=== PATIENT | male | born 1950 | race Caucasian/White ===

== ENCOUNTER → 2016-11-09 | Outpatient (CLI) | payer OTHER ==
--- NOTE | 2016-11-09 09:21 | RAD ---
Examination: Ultrasound kidneys History: History of acute renal failure Comparison: None available Findings: The right kidney measures 12.9 x 7.0 x 6.7 cm. The left kidney measures 12.1 x 5.7 x 6.7 cm. The urinary bladder is mildly distended. No evidence of hydronephrosis. Impression: Unremarkable exam
[2016-11-09 09:36] LABS: HEMATOCRIT 39.1 % (39.0-53.0); HEMOGLOBIN 12.6 g/dL (13.0-17.5)
[2016-11-09 09:44] LABS: ALBUMIN 3.5 g/dL (3.4-5.0); CALCIUM 8.9 mg/dL (8.5-10.1); CREATININE 1.6 mg/dL (0.7-1.3); GFR 43.7; PHOSPHORUS 3.7 mg/dL (2.6-4.7); POTASSIUM 5.4 mmol/L (3.5-5.1)
[2016-11-09 09:54] LABS: BACTERIA,URINE 0 /HPF (0-FEW); BILIRUBIN,URINE NEG (NEG); CLARITY,URINE CLEAR; COLOR,URINE COLORLESS; GLUCOSE,URINE NEG (NEG); NITRITE,URINE NEG (NEG); RBC,URINE 0 /HPF (0-2); UROBILINOGEN,URINE 0.2 mg/dL (0.2 mg/dL); WBC,URINE 0 /HPF (0-4)
[2016-11-10 15:08] LABS: MICROALB RD UR <12.0 ug/mL (Not Estab.); PROTEIN RANDOM URINE <4.0 mg/dL (Not Estab.)
[2016-11-10 18:07] LABS: CALCIUM PTH 8.9 mg/dL (8.6-10.2); CREATININE PTH 1.49 mg/dL (0.76-1.27); PTH INTACT 61 pg/mL (15-65)
== END | disposition home or self-care (01) ==
LOC: US 07:56
PROVIDERS: ATTEND Internal Medicine Nephrology
DX: N18.3 Chronic kidney disease, stage 3 (moderate) (principal); N17.9 Acute kidney failure, unspecified; N32.89 Other specified disorders of bladder
CPT/HCPCS: 36415; 76770; 80069; 81001; 82043; 82570; 83735; 83970; 84156; 85014; 85018

== ENCOUNTER 2017-05-27 13:13 | Inpatient (IN) | payer MEDICARE ==
[~2017-05-27] VITALS: Ht 195.6 cm; Wt 151.5 kg
[2017-05-27 13:55] VITALS: BP 113/66
[2017-05-27 16:12] VITALS: BP 102/61
[2017-05-27 16:19] LABS: BILIRUBIN,URINE NEG (NEG); CLARITY,URINE CLEAR; COLOR,URINE YELLOW; GLUCOSE,URINE NEG (NEG)
[2017-05-27 16:20] LABS: BACTERIA,URINE 0 /HPF (0-FEW); NITRITE,URINE NEG (NEG); RBC,URINE 0 /HPF (0-2); UROBILINOGEN,URINE 0.2 mg/dL (0.2 mg/dL); WBC,URINE 0 /HPF (0-4)
[2017-05-27] MEDS ORDERED: GLIM1TAB2 PO (16:28)
[2017-05-27] MEDS ORDERED: WARF5TAB7 PO (16:28)
[2017-05-27] MEDS ORDERED: SIMV40TA3 PO (16:28)
[2017-05-27] MEDS ORDERED: ASPI-630 PO (16:28)
[2017-05-27] MEDS ORDERED: FURO40TA4 PO (16:28)
[2017-05-27] MEDS ORDERED: FENO160T PO (16:28)
[2017-05-27] MEDS ORDERED: MULT1TAB13 PO (16:28)
[2017-05-27] MEDS ORDERED: LISI40TA PO (16:28)
[2017-05-27] MEDS ORDERED: INSU100I27 SQ (16:45)
[2017-05-27] MEDS ORDERED: PROP40TA PO (16:45)
[2017-05-27] MEDS ORDERED: GENTAMYCIN TOP (16:48)
[2017-05-27] MEDS ORDERED: VANCOMYCIN 2 GM in IV NORMAL SALINE 500ML 500 ML IV ONE (18:00)
[2017-05-27 18:06] LABS: BASO # 0.2 x10^3/uL (0.0-0.2); BASO % 1 % (0-3); EOS # 0.2 x10^3/uL (0.0-0.7); EOS % 2 % (0-3); HEMATOCRIT 34.1 % (39.0-53.0); HEMOGLOBIN 11.1 g/dL (13.0-17.5); LYMPH # 0.8 x10^3/uL (1.0-4.8); LYMPH % 7 % (24-48); MEAN CORPUSCULAR HEMOGLOBIN 28 pg (25-35); MEAN CORPUSCULAR HGB CONC 32 g/dL (31-37); MEAN CORPUSCULAR VOLUME 85 fL (79-100); MONO % 8 % (0-9); NEUT # 9.7 x10^3uL (1.8-7.7); NEUT % 82 % (31-73); PLATELET COUNT 374 x10^3/uL (140-400); RED BLOOD COUNT 4.02 x10^6/uL (4.30-5.70); RED CELL DISTRIBUTION WIDTH 16.4 % (11.5-14.5); WHITE BLOOD COUNT 11.9 x10^3/uL (4.0-11.0)
[2017-05-27 18:29] LABS: ALBUMIN 2.9 g/dL (3.4-5.0); ALBUMIN/GLOBULIN RATIO 0.7 (1.0-1.7); CALCIUM 9.1 mg/dL (8.5-10.1); CREATININE 2.2 mg/dL (0.7-1.3); GFR 30.2; TOTAL BILIRUBIN 0.3 mg/dL (0.2-1.0); TOTAL PROTEIN 7.2 g/dL (6.4-8.2)
[2017-05-27 19:11] LABS: SEDIMENTATION RATE 88 (0-15)
[2017-05-27] MEDS ORDERED: DEXTROSE 50% 25 GM / 50ML DISP.SYRIN. IV PRN (19:15)
[2017-05-27 19:38] VITALS: BP 105/68
[2017-05-27] MEDS: SIMVASTATIN 40 MG TABLET. PO SCH (20:27)
[2017-05-27] MEDS: WARFARIN 5 MG TABLET. PO SCH (20:27)
[2017-05-27] MEDS: FENOFIBRATE NANOCRYSTALLIZED 145 MG TABLET PO SCH (20:27)
[2017-05-27] MEDS: IV NORMAL SALINE 1,000ML 1,000 ML IV SCH (20:27)
[2017-05-27] MEDS: PROPRANOLOL 20 MG TABLET. PO SCH ×2 (20:29→20:30)
[2017-05-27] MEDS: INSULIN DETEMIR 300 UNITS/3 ML INSULN.PEN. SQ SCH (21:10)
[2017-05-27] MEDS: VANCOMYCIN PER PHARMACY MC PRN (21:18)
[2017-05-27 23:21] VITALS: BP 115/65
[2017-05-28] MEDS: ACETAMINOPHEN 500 MG TABLET PO PRN (00:52)
[2017-05-28] MEDS: IV NORMAL SALINE 1,000ML 1,000 ML IV SCH ×5 (03:53→23:15)
[2017-05-28 05:52] VITALS: BP 104/67
[2017-05-28 06:05] LABS: CALCIUM 8.8 mg/dL (8.5-10.1); CREATININE 2.4 mg/dL (0.7-1.3); GFR 27.3
[2017-05-28 06:11] LABS: BASO # 0.1 x10^3/uL (0.0-0.2); BASO % 1 % (0-3); EOS # 0.3 x10^3/uL (0.0-0.7); EOS % 3 % (0-3); HEMATOCRIT 32.5 % (39.0-53.0); HEMOGLOBIN 10.5 g/dL (13.0-17.5); LYMPH # 1.6 x10^3/uL (1.0-4.8); LYMPH % 14 % (24-48); MEAN CORPUSCULAR HEMOGLOBIN 27 pg (25-35); MEAN CORPUSCULAR HGB CONC 32 g/dL (31-37); MEAN CORPUSCULAR VOLUME 85 fL (79-100); MONO # 1.1 x10^3/uL (0.0-1.1); MONO % 9 % (0-9); NEUT # 8.5 x10^3uL (1.8-7.7); NEUT % 73 % (31-73); PLATELET COUNT 344 x10^3/uL (140-400); RED BLOOD COUNT 3.81 x10^6/uL (4.30-5.70); RED CELL DISTRIBUTION WIDTH 16.5 % (11.5-14.5); WHITE BLOOD COUNT 11.6 x10^3/uL (4.0-11.0)
[2017-05-28] MEDS: LISINOPRIL 20 MG TABLET PO SCH (08:47)
[2017-05-28] MEDS: ASPIRIN 81 MG TAB.CHEW PO SCH (08:48)
[2017-05-28] MEDS: MULTIVITAMIN with MINERAL TABLET. PO SCH (08:49)
[2017-05-28] MEDS: GLIMEPIRIDE 2 MG TABLET PO SCH (08:49)
[2017-05-28] MEDS: PROPRANOLOL 20 MG TABLET. PO SCH (08:50)
[2017-05-28] MEDS: GENTAMICIN 0.1% TOPICAL OINTMENT 15GM TUBE. TP SCH (08:51)
[2017-05-28] MEDS ORDERED: FUROSEMIDE 40 MG TABLET PO SCH (09:00)
[2017-05-28 11:43] VITALS: BP 96/59
[2017-05-28 15:40] VITALS: BP 118/54
--- NOTE | 2017-05-28 16:14 | PN ---
DATE: SUBJECTIVE: A 67-year-old gentleman being seen at the [facility], he had an infection in his left second toe that the wound care doctor was quite concerned. As a result of this, the patient was admitted to the hospital for further evaluation, IV antibiotic therapy as the entry specialists did not think that the patient could tolerate just oral antibiotics as a way of handling this situation. White count slightly elevated at 12,000; sed rate elevated 88. Potassium initially was 6 and came down to 5. Coags were proper, as he is on chronic warfarin therapy, he is also a diabetic. In any case, the patient is making good progress. He is receiving IV vancomycin and good treatment there. OBJECTIVE: VITAL SIGNS: Blood pressure 105/60, respiratory rate 18, pulse 70, afebrile, did have temperature of 100.9. HEENT: The patient's head was atraumatic, normocephalic. Eyes: PERRLA. LUNGS: Clear. CARDIOVASCULAR: Stable. ABDOMEN: Protuberant. EXTREMITIES: Left foot markedly swollen and tender to that second toe of the left foot. Right toes are also very emaciated as well, but cool, decreased circulation, apparently they have checked these down at [facility] as far as arterial circulation. IMPRESSION: Cellulitis to the left toes, type 2 diabetes, chronic infections of the legs, morbid obesity, CKD III. Continue on IV vancomycin and continue to monitor albumin, which is a moderate to severe protein malnutrition as well as diabetes. THOMAS MALDONADO MD DR: GURU/jordan JOB#: [id number] / [id number]
[2017-05-28] MEDS: WARFARIN 5 MG TABLET. PO SCH (18:35)
[2017-05-28 19:28] VITALS: BP 109/58
[2017-05-28] MEDS: INSULIN DETEMIR 300 UNITS/3 ML INSULN.PEN. SQ SCH (20:30)
[2017-05-28] MEDS: VANCOMYCIN 2 GM in IV NORMAL SALINE 500ML 500 ML IV SCH (20:30)
[2017-05-28] MEDS: FENOFIBRATE NANOCRYSTALLIZED 145 MG TABLET PO SCH (20:30)
[2017-05-28] MEDS: SIMVASTATIN 40 MG TABLET. PO SCH (20:30)
[2017-05-29] MEDS: IV NORMAL SALINE 1,000ML 1,000 ML IV SCH ×5 (02:15→19:28)
[2017-05-29] MEDS: ACETAMINOPHEN 500 MG TABLET PO PRN ×2 (05:14→20:58)
[2017-05-29 05:31] LABS: BASO # 0.1 x10^3/uL (0.0-0.2); BASO % 1 % (0-3); EOS # 0.2 x10^3/uL (0.0-0.7); EOS % 2 % (0-3); HEMATOCRIT 30.5 % (39.0-53.0); HEMOGLOBIN 9.9 g/dL (13.0-17.5); LYMPH # 0.9 x10^3/uL (1.0-4.8); LYMPH % 10 % (24-48); MEAN CORPUSCULAR HEMOGLOBIN 28 pg (25-35); MEAN CORPUSCULAR HGB CONC 32 g/dL (31-37); MEAN CORPUSCULAR VOLUME 86 fL (79-100); MONO # 0.9 x10^3/uL (0.0-1.1); MONO % 10 % (0-9); NEUT # 7.1 x10^3uL (1.8-7.7); NEUT % 77 % (31-73); PLATELET COUNT 284 x10^3/uL (140-400); RED BLOOD COUNT 3.53 x10^6/uL (4.30-5.70); RED CELL DISTRIBUTION WIDTH 16.7 % (11.5-14.5); WHITE BLOOD COUNT 9.2 x10^3/uL (4.0-11.0)
[2017-05-29 05:34] VITALS: BP 122/63
[2017-05-29 05:46] LABS: ALBUMIN 2.3 g/dL (3.4-5.0); ALBUMIN/GLOBULIN RATIO 0.5 (1.0-1.7); CALCIUM 8.2 mg/dL (8.5-10.1); GFR 33.7; POTASSIUM 5.7 mmol/L (3.5-5.1); TOTAL BILIRUBIN 0.3 mg/dL (0.2-1.0); TOTAL PROTEIN 6.8 g/dL (6.4-8.2)
[2017-05-29] MEDS: GENTAMICIN 0.1% TOPICAL OINTMENT 15GM TUBE. TP SCH (09:00)
[2017-05-29] MEDS: ASPIRIN 81 MG TAB.CHEW PO SCH (09:09)
[2017-05-29] MEDS: MULTIVITAMIN with MINERAL TABLET. PO SCH (09:09)
[2017-05-29] MEDS: LISINOPRIL 20 MG TABLET PO SCH (09:09)
[2017-05-29] MEDS: GLIMEPIRIDE 2 MG TABLET PO SCH (09:10)
[2017-05-29] MEDS: PROPRANOLOL 20 MG TABLET. PO SCH ×2 (09:10→20:17)
[2017-05-29 10:53] VITALS: BP 105/68
[2017-05-29] MEDS: WARFARIN 5 MG TABLET. PO SCH (11:21)
[2017-05-29 14:42] VITALS: BP 109/66
--- NOTE | 2017-05-29 14:47 | RAD ---
CHEST PA LATERAL Clinical Indication: Patient with PICC line placement yesterday, left arm pain today. Comparison: None. Technique: Frontal and lateral views of the chest are obtained. Findings: Right upper extremity PICC line present with distal tip overlying the expected region of the superior cavoatrial junction. No focal consolidation, pleural effusion or pneumothorax is seen. Prominent interstitial markings are seen bilaterally. Mild biapical scarring is present. Mild cardiomegaly is present. Visualized osseous structures and surrounding soft tissues demonstrate no acute finding. IMPRESSION: 1. Right upper extremity PICC line distal tip overlies expected superior cavoatrial junction. 2. Prominent interstitial markings may represent fibrosis or mild interstitial edema. Mild cardiomegaly.
--- NOTE | 2017-05-29 16:43 | RAD ---
FOOT LEFT 2V Clinical Indication: infection Comparison: None. Technique: Frontal, oblique and lateral views of the left foot are obtained. Findings: There is wrap material overlying the foot which limits detailed visualization of the underlying osseous structures. There is evidence of erosion of the proximal, mid and distal phalanges of the fourth digit. Remaining osseous structures of the foot appear grossly intact. There is some increased density within the soft tissues in the region of the fourth digit, may represent focal swelling or laceration. No significant subcutaneous emphysema is seen. Hyperdensities are seen within soft tissue swelling along the dorsum of the foot at the level of the phalanges, of unknown etiology, considerations would include foreign bodies or overlying external artifact. IMPRESSION: Osseous erosion involving the phalanges of the fourth digit, may be secondary to osteomyelitis. Soft tissue swelling and increased density present about the foot, detailed above.
--- NOTE | 2017-05-29 18:45 | PN ---
DATE: 05/28/2017 SUBJECTIVE: A 67-year-old gentleman with cellulitis to his left foot. The patient receiving IV vancomycin, doing a little bit better. Wound seems to be healing up fairly good, had a PICC line, but has pain in his right arm, did spike temperature of 101.1 early this morning . PHYSICAL EXAMINATION: VITAL SIGNS: Pulse 80, respiratory rate 18. NEUROLOGIC: The patient is alert and oriented x 3. Speech fluent. Cranial nerves appropriate. Cranial nerves 2-12 grossly intact. EXTREMITIES: The patient's left foot still bandaged healing well. Continuing on vancomycin. LABORATORY DATA: His potassium for whatever reason, has gone up to 5.7. We will decrease his lisinopril, continue to monitor him on that. IMPRESSION: 1. Cellulitis to the left foot. 2. Type 2 diabetes. 3. Morbid obesity. PLAN: We will go ahead and get an x-ray of the left foot, also of the chest to make sure the PICC line is in place. THOMAS MALDONADO MD DR: GURU/jordan JOB#: [id number] / [id number]
[2017-05-29 19:16] VITALS: BP 126/63
[2017-05-29] MEDS: VANCOMYCIN 2 GM in IV NORMAL SALINE 500ML 500 ML IV SCH (20:16)
[2017-05-29] MEDS: SIMVASTATIN 40 MG TABLET. PO SCH (20:17)
[2017-05-29] MEDS: FENOFIBRATE NANOCRYSTALLIZED 145 MG TABLET PO SCH (20:17)
[2017-05-29] MEDS: INSULIN DETEMIR 300 UNITS/3 ML INSULN.PEN. SQ SCH (20:52)
[2017-05-29 20:58] LABS: VANC TR 13.1 mcg/mL (10.0-20.0)
[2017-05-29] MEDS: VANCOMYCIN PER PHARMACY MC PRN (21:19)
[2017-05-29 23:04] VITALS: BP 126/63
[2017-05-30] MEDS: IV NORMAL SALINE 1,000ML 1,000 ML IV SCH (02:54)
[2017-05-30 05:41] LABS: BASO # 0.1 x10^3/uL (0.0-0.2); BASO % 1 % (0-3); EOS # 0.3 x10^3/uL (0.0-0.7); EOS % 3 % (0-3); HEMATOCRIT 31.8 % (39.0-53.0); HEMOGLOBIN 10.1 g/dL (13.0-17.5); LYMPH # 1.1 x10^3/uL (1.0-4.8); LYMPH % 13 % (24-48); MEAN CORPUSCULAR HEMOGLOBIN 28 pg (25-35); MEAN CORPUSCULAR HGB CONC 32 g/dL (31-37); MEAN CORPUSCULAR VOLUME 87 fL (79-100); MONO % 12 % (0-9); NEUT # 5.8 x10^3uL (1.8-7.7); NEUT % 71 % (31-73); PLATELET COUNT 332 x10^3/uL (140-400); RED BLOOD COUNT 3.64 x10^6/uL (4.30-5.70); RED CELL DISTRIBUTION WIDTH 16.8 % (11.5-14.5); WHITE BLOOD COUNT 8.2 x10^3/uL (4.0-11.0)
[2017-05-30 05:57] VITALS: BP 133/83
[2017-05-30 06:03] LABS: CALCIUM 8.5 mg/dL (8.5-10.1); CREATININE 1.6 mg/dL (0.7-1.3); GFR 43.6; POTASSIUM 5.7 mmol/L (3.5-5.1)
[2017-05-30] MEDS: MULTIVITAMIN with MINERAL TABLET. PO SCH (08:49)
[2017-05-30] MEDS: ASPIRIN 81 MG TAB.CHEW PO SCH (08:49)
[2017-05-30] MEDS: PROPRANOLOL 20 MG TABLET. PO SCH (08:49)
[2017-05-30] MEDS: GLIMEPIRIDE 2 MG TABLET PO SCH (08:50)
[2017-05-30] MEDS ORDERED: LISINOPRIL 20 MG TABLET PO SCH (09:00)
[2017-05-30] MEDS ORDERED: FUROSEMIDE 40 MG/4 ML VIAL IVP SCH (09:40)
[2017-05-30 10:53] VITALS: BP 134/85
== END 2017-05-30 13:05 | disposition short-term general hospital (02) | DRG 871 ==
LOC: 1 SOUTH 13:30
PROVIDERS: ADMIT Family Medicine; ATTEND Family Medicine
PROC: 02HV33Z Insertion of Infusion Device into Superior Vena Cava, Percutaneous Approach (ICD-10-PCS; principal; 2017-05-28)
PROC: B548ZZA Ultrasonography of Superior Vena Cava, Guidance (ICD-10-PCS; 2017-05-28)
DX: A41.9 Sepsis, unspecified organism (principal); E43 Unspecified severe protein-calorie malnutrition; E11.22 Type 2 diabetes mellitus with diabetic chronic kidney disease; N18.3 Chronic kidney disease, stage 3 (moderate); L03.116 Cellulitis of left lower limb; E66.01 Morbid (severe) obesity due to excess calories; Z68.39 Body mass index [BMI] 39.0-39.9, adult; Z79.01 Long term (current) use of anticoagulants
CPT/HCPCS: 36415; 36569; 71020; 73620; 80048; 80053; 80202; 81001; 82947; 83605; 85025; 85610; 85651; 87040; 87070; J1815; J1940; J3370; J7040; J7030

== ENCOUNTER 2018-04-06 08:04 | Inpatient (IN) | payer MEDICARE ==
[2018-04-06] VITALS (7 sets, daily range): BP systolic 105–116; BP diastolic 53–76
[~2018-04-06] VITALS: Ht 195.6 cm; Wt 144.3 kg
[~2018-04-06 08:04] MED LIST: ASPI-630 PO; FENO160T PO; FURO40TA4 PO; GENTAMYCIN TOP; GLIM1TAB2 PO; INSU100I27 SQ; LISI40TA PO; MULT1TAB13 PO; PROP40TA PO; SIMV40TA3 PO; WARF-31 PO
[2018-04-06] MEDS ORDERED: IV NORMAL SALINE 1,000ML 1,000 ML IV SCH (10:30)
[2018-04-06] MEDS ORDERED: WARF3TAB50 PO (12:19)
[2018-04-06] MEDS ORDERED: ERGO500027 PO (12:22)
[2018-04-06 13:10] LABS: ALBUMIN 3.3 g/dL (3.4-5.0); ALBUMIN/GLOBULIN RATIO 0.9 (1.0-1.7); CALCIUM 8.2 mg/dL (8.5-10.1); CREATININE 6.7 mg/dL (0.7-1.3); GFR 8.3; TOTAL BILIRUBIN 0.3 mg/dL (0.2-1.0); TOTAL PROTEIN 6.9 g/dL (6.4-8.2)
[2018-04-06 13:21] LABS: POTASSIUM 7.7 mmol/L (3.5-5.1)
[2018-04-06] MEDS: GENTAMICIN 0.1% TOPICAL OINTMENT 15GM TUBE. TP SCH (13:27)
[2018-04-06 13:30] LABS: BASO # 0.1 x10^3/uL (0.0-0.2); BASO % 1 % (0-3); EOS # 0.3 x10^3/uL (0.0-0.7); EOS % 4 % (0-3); HEMATOCRIT 34.9 % (39.0-53.0); HEMOGLOBIN 11.1 g/dL (13.0-17.5); LYMPH # 0.9 x10^3/uL (1.0-4.8); LYMPH % 10 % (24-48); MEAN CORPUSCULAR HEMOGLOBIN 29 pg (25-35); MEAN CORPUSCULAR HGB CONC 32 g/dL (31-37); MEAN CORPUSCULAR VOLUME 90 fL (79-100); MONO # 0.6 x10^3/uL (0.0-1.1); MONO % 7 % (0-9); NEUT # 6.5 x10^3uL (1.8-7.7); NEUT % 78 % (31-73); PLATELET COUNT 293 x10^3/uL (140-400); RED BLOOD COUNT 3.88 x10^6/uL (4.30-5.70); RED CELL DISTRIBUTION WIDTH 16.6 % (11.5-14.5); WHITE BLOOD COUNT 8.4 x10^3/uL (4.0-11.0)
[2018-04-06] MEDS ORDERED: SODIUM POLYSTYRENE SULFONATE 15 GM/60 ML ORAL.SUSP. PO ONE (15:00)
[2018-04-06] MEDS ORDERED: DEXTROSE 50% 25 GM / 50ML DISP.SYRIN. IV ONE (15:00)
[2018-04-06] MEDS ORDERED: INSULIN REGULAR 100 UNIT/ML 3ML VIAL. IV ONE (15:00)
[2018-04-06] MEDS ORDERED: SODIUM BICARB ADULT 8.4% 50 MEQ/50 ML DISP.SYRIN. IV ONE (15:00)
[2018-04-06] MEDS ORDERED: CALCIUM GLUCONATE 1,000 MG/10 ML VIAL IV ONE (15:00)
[2018-04-06] MEDS ORDERED: WARFARIN 3 MG TABLET. PO SCH (16:00)
[2018-04-06] MEDS ORDERED: CALCIUM GLUCONATE 1,000 MG in IV NORMAL SALINE 100ML 100 ML IV ONE (16:00)
[2018-04-06] MEDS: ALBUTEROL SULFATE 2.5 MG/3 ML NEBU. NEB SCH ×2 (16:00→20:00)
[2018-04-06] MEDS ORDERED: WARFARIN 5 MG TABLET. PO SCH (16:00)
--- NOTE | 2018-04-06 16:45 | RAD ---
Chest, 2 views, 04/06/2018: HISTORY: Shortness of breath Comparison is made to a study from 05/29/2017. A right PICC is unchanged extending into the superior aspect of the right atrium. The heart size is normal. There are scattered parenchymal scars. No pulmonary consolidation is seen. There is no evidence of pleural fluid. Moderate spurring is present in the spine. IMPRESSION: No acute cardiopulmonary abnormality is detected. Electronically signed by: Robert Trinidad MD (04/06/2018 4:42 PM) [facility]
[2018-04-06] MEDS: IV DEXTROSE 5 %-0.45 % NACL 1,000 ML IV SCH (17:07)
--- NOTE | 2018-04-06 17:17 | EKG ---
[address] [address] Test Date: 2018-04-06 Test Time: 17:10:50 Pat Name: CALOS METZ Department: Room: 103 A Gender: M Produce Wrapper: : 1950 Requested By: THOMAS MALDONADO Order Number: [id number] Reading MD: Apolinar Sky MD Measurements Intervals [place] Rate: 89 P: 90 GA: 228 QRS: 31 QRSD: 88 T: 38 QT: 318 QTc: 393 Interpretive Statements SINUS RHYTHM PROLONGED GA INTERVAL Electronically Signed On 04-10-2018 8:45:44 CDT by Apolinar Sky MD
[2018-04-06 18:56] LABS: BILIRUBIN,URINE NEG (NEG); CLARITY,URINE HAZY; COLOR,URINE YELLOW; GLUCOSE,URINE NEG (NEG)
[2018-04-06 18:57] LABS: BACTERIA,URINE 0 /HPF (0-FEW); NITRITE,URINE NEG (NEG); RBC,URINE 20-40 /HPF (0-2); SQUAMOUS EPITHELIAL CELL,UR OCC /LPF; UROBILINOGEN,URINE 0.2 mg/dL (0.2 mg/dL); WBC,URINE 0 /HPF (0-4)
[2018-04-06 18:59] LABS: CALCIUM 8.2 mg/dL (8.5-10.1); CREATININE 6.3 mg/dL (0.7-1.3); GFR 8.9
[2018-04-06 19:02] LABS: POTASSIUM 6.2 mmol/L (3.5-5.1)
[2018-04-06] MEDS ORDERED: PROPRANOLOL 20 MG TABLET. PO SCH (21:00)
[2018-04-06] MEDS ORDERED: INSULIN DETEMIR 55 UNIT SQ SCH (21:00)
[2018-04-06] MEDS ORDERED: VANCOMYCIN PER PHARMACY MC PRN ×2 (22:00→22:15)
[2018-04-06] MEDS ORDERED: VANCOMYCIN 2 GM in IV NORMAL SALINE 500ML 500 ML IV SCH (23:00)
[2018-04-07] VITALS (9 sets, daily range): BP systolic 83–113; BP diastolic 46–55
[2018-04-07] MEDS: IV DEXTROSE 5 %-0.45 % NACL 1,000 ML IV SCH ×3 (00:33→07:29)
[2018-04-07 02:08] LABS: HEMOGLOBIN A1C 7.2 % (4.8-5.6)
[2018-04-07 04:59] LABS: BASO % 1 % (0-3); EOS # 0.2 x10^3/uL (0.0-0.7); EOS % 4 % (0-3); HEMATOCRIT 27.2 % (39.0-53.0); HEMOGLOBIN 8.6 g/dL (13.0-17.5); LYMPH # 0.7 x10^3/uL (1.0-4.8); LYMPH % 12 % (24-48); MEAN CORPUSCULAR HEMOGLOBIN 29 pg (25-35); MEAN CORPUSCULAR HGB CONC 32 g/dL (31-37); MEAN CORPUSCULAR VOLUME 90 fL (79-100); MONO # 0.5 x10^3/uL (0.0-1.1); MONO % 8 % (0-9); NEUT # 4.4 x10^3uL (1.8-7.7); NEUT % 75 % (31-73); PLATELET COUNT 216 x10^3/uL (140-400); RED BLOOD COUNT 3.01 x10^6/uL (4.30-5.70); RED CELL DISTRIBUTION WIDTH 15.8 % (11.5-14.5); WHITE BLOOD COUNT 5.8 x10^3/uL (4.0-11.0)
[2018-04-07 05:03] LABS: CALCIUM 7.6 mg/dL (8.5-10.1); CREATININE 5.8 mg/dL (0.7-1.3); GFR 9.8
[2018-04-07] MEDS: ALBUTEROL SULFATE 2.5 MG/3 ML NEBU. NEB SCH (05:18)
[2018-04-07] MEDS ORDERED: CALCIUM GLUCONATE 1,000 MG in IV NORMAL SALINE 100ML 100 ML IV ONE (06:00)
[2018-04-07] MEDS ORDERED: DEXTROSE 50% 25 GM / 50ML DISP.SYRIN. IV ONE (06:30)
[2018-04-07] MEDS ORDERED: CALCIUM GLUCONATE 1,000 MG/10 ML VIAL IV ONE ×2 (06:30→08:00)
[2018-04-07] MEDS ORDERED: INSULIN REGULAR 100 UNIT/ML 3ML VIAL. IV ONE (07:00)
[2018-04-07] MEDS ORDERED: LACTULOSE 20 GM/30 ML SOLUTION. PO ONE (08:00)
[2018-04-07] MEDS ORDERED: SODIUM BICARB ADULT 8.4% 50 MEQ/50 ML DISP.SYRIN. IV ONE (08:00)
[2018-04-07] MEDS ORDERED: ASPIRIN 81 MG TAB.CHEW PO SCH (08:00)
[2018-04-07] MEDS ORDERED: SODIUM POLYSTYRENE SULFONATE 15 GM/60 ML ORAL.SUSP. PO ONE (08:00)
[2018-04-07] MEDS: GENTAMICIN 0.1% TOPICAL OINTMENT 15GM TUBE. TP SCH (09:00)
[2018-04-07] MEDS ORDERED: NON FORMULARY ITEM (Glimepiride 1 TAB) PO SCH (09:00)
[2018-04-07] MEDS ORDERED: MULTIVITAMIN with MINERAL TABLET. PO SCH (09:00)
[2018-04-07] MEDS ORDERED: FUROSEMIDE 40 MG TABLET PO SCH (09:00)
--- NOTE | 2018-04-07 12:22 | DS ---
DATE OF DISCHARGE: 04/07/2018 HOSPITAL COURSE: The patient is a 68-year-old male who came in with hyperkalemia, potassium greater than 7. The patient also had acute on top of chronic renal failure. The patient actually was doing quite well. Mentally, he was alert and oriented and not having any major problems. The blood pressure went down to 89/52, respiratory rate 18, pulse 6. The patient also had infection in his legs. He has been followed by wound clinic down at [facility]. His white count remained stable at around 8. His hemoglobin went down to 8.6 and so forth. His potassium did go down as low as 6.2, however, came right back up to 7 with a BUN and creatinine of 54 and 5.8 despite fluids and calcium gluconate, bicarbonate, Kayexalate, insulin, and D50. He probably needs dialysis and therefore he was transferred down to [facility] where they have all those specialists. IMPRESSION: Hyperkalemia, acute on top of chronic renal failure, severe, possible sepsis, cellulitis of the legs, hypotension, type 2 diabetes, moderate hypoalbuminemia, elevated ammonia levels. He is on chronic warfarin. The patient will be transferred down to [place] as noted. Dr. Alegria will be accepting the patient in transfer. THOMAS MALDONADO MD DR: GURU/jordan JOB#: [id number] / [id number]
--- NOTE | 2018-04-07 12:38 | PN ---
DATE: 04/07/2018 SUBJECTIVE: A 68-year-old male came in yesterday with hyperkalemia and acute on top of chronic renal failure. The patient was given IV calcium gluconate as well as D50 and insulin due to some recent studies. Kayexalate was aggressively used which can cause abnormalities. In any case, his main problem seems not related to be with the potassium but also his renal function is markedly diminished, initially BUN of 93, creatinine of 6.3 that is somewhat improved to 84 and 5.8. He has been seen by Nephrology in the past. PICC line is placed. The patient is basically stable, although blood pressures have been dropping somewhat approximately 90/50, respiratory rate 20, pulse 70. The patient is alert and oriented. He says he has no significant pain. He does have bilateral cellulitis and problems with his legs for which he has been seen down at [facility]. In any case, he is receiving IV vancomycin and Levaquin for that adjusted by pharmacy and the like. PHYSICAL EXAMINATION: GENERAL: Otherwise, the patient is alert and oriented. LUNGS: Diminished, but clear. CARDIOVASCULAR: Regular sinus rhythm. ABDOMEN: Soft, nontender. EXTREMITIES: The patient's legs are quite swollen, weepy, being wrapped with Unna boots there. LABORATORY DATA: Most recent labs show sodium 134, potassium 7, BUN and creatinine of 84 and 5.8. The patient's A1c 7.2. Albumin low at 3.3. Hemoglobin and hematocrit 8.6 and 27 with white count of 5.8. His INR is good at 2.6. He is on chronic warfarin. D-dimer of course was unremarkable. Due to the complicated nature and probable need of dialysis and alike patient will be transferred down to [place]. He is agreeable with that. Discussed with him, Dr. Alegria be accepting physician. IMPRESSION: Hyperkalemia, acute on top of chronic renal failure, anemia, cellulitis to the legs, hematuria. The patient will be transferred via EMS to that facility. THOMAS MALDONADO MD DR: GURU/jordan JOB#: [id number] / [id number]
[2018-04-07] MEDS ORDERED: LACTOBACILLUS RHAMNOSUS GG 1 CAPSULE. PO SCH (21:00)
[2018-04-09] MEDS ORDERED: VANCOMYCIN 2 GM in IV NORMAL SALINE 500ML 500 ML IV SCH (21:00)
--- NOTE | 2018-04-14 10:00 | HP ---
ADMIT DATE: 04/06/2018 HISTORY OF PRESENT ILLNESS: The patient is a 68-year-old male who has apparently been seen as an outpatient, had labs drawn and had a potassium of greater than 7. As a result of this, he was directly admitted to the hospital, given large doses of D50 and insulin as well as fluids and calcium gluconate protocol. The patient's blood pressure was also down to 89/52. The patient's potassium did come down at first and then rebounded back into the 7 range. He also had marked deterioration of renal function with a BUN and creatinine of 54 and 5.8. As a result of this, the patient because of his extraordinary circumstances, was transferred down to [place], under care of Dr. Alegria for evaluation for this. PAST MEDICAL HISTORY: Including peripheral neuropathy, chronic anticoagulation on warfarin, chronic renal insufficiency and failure, left foot fourth digit removal, cellulitis, stasis ulcers. FAMILY HISTORY: Positive for diabetes, depression, congestive heart failure and COPD in the mother and a daughter with depression. Father with aneurysm and colon cancer. ALLERGIES: THE PATIENT HAS ALLERGIES TO MILK-CONTAINING PRODUCTS AND LIBRIUM. MEDICATIONS: Include warfarin 3 mg, fenofibrate 160, Zoloft 40, propranolol 40, lisinopril 40, aspirin 81, furosemide, glyburide. FAMILY HISTORY: Noncontributory. SOCIAL HISTORY: The patient used to have a history of smoking; however, he has quit for several years now. Denies alcohol or drug use. REVIEW OF SYSTEMS: The patient says he feels fairly weak, but other than that, he is feeling fairly good. Denies chest pain, shortness of breath. Denies abdominal pain. PHYSICAL EXAMINATION: GENERAL: Pleasant white male. VITAL SIGNS: Blood pressure 88/50, respiratory rate 20, pulse 70, afebrile. HEENT: The patient's head was atraumatic, normocephalic. Eyes: PERRLA without jaundice. Mouth and throat were normal. NECK: Supple, without JVD, carotid bruits or thyromegaly. LUNGS: Diminished throughout, poor movement of air. CARDIOVASCULAR: Regular sinus rhythm, S1, S2, without murmur, rub, thrill, or extra heart sound. ABDOMEN: Soft, nontender, no rebound or guarding, positive bowel sounds, no hepatosplenomegaly was noted. EXTREMITIES: No clubbing, cyanosis, +3 to 4 pitting edema with multiple ulcerations and old ulcers on his legs. Otherwise, pulses noted distally diminished. LABORATORY DATA: Demonstrated a hemoglobin and hematocrit of 8.6 and 27. Potassium of 7, BUN and creatinine 84 and 5.8, blood sugar 184. Urine showed 20-40 red blood cells. IMPRESSION: Therefore, hyperkalemia, acute on top of chronic renal failure, venous stasis ulcers, anemia, probably secondary to renal dysfunction, chronic warfarin therapy. We will make further evaluation on him as indicated: As noted, will be transferred out to [place] with Dr. Alegria as an accepting attending. THOMAS MALDONADO MD DR: GURU/jordan JOB#: [id number] / [id number]
== END 2018-04-07 09:45 | disposition short-term general hospital (02) | DRG 872 ==
LOC: 1 SOUTH 09:41
PROVIDERS: ADMIT Family Medicine; ATTEND Family Medicine
DX: A41.9 Sepsis, unspecified organism (principal); L03.115 Cellulitis of right lower limb; L03.116 Cellulitis of left lower limb; N17.9 Acute kidney failure, unspecified; L97.909 Non-pressure chronic ulcer of unspecified part of unspecified lower leg with unspecified severity; E87.5 Hyperkalemia; E11.22 Type 2 diabetes mellitus with diabetic chronic kidney disease; D64.9 Anemia, unspecified; E88.09 Other disorders of plasma-protein metabolism, not elsewhere classified; N18.9 Chronic kidney disease, unspecified; Z79.01 Long term (current) use of anticoagulants; E11.622 Type 2 diabetes mellitus with other skin ulcer; Z83.3 Family history of diabetes mellitus; Z87.891 Personal history of nicotine dependence; Z82.5 Family history of asthma and other chronic lower respiratory diseases; Z82.49 Family history of ischemic heart disease and other diseases of the circulatory system; Z80.0 Family history of malignant neoplasm of digestive organs
CPT/HCPCS: 36415; 36569; 71046; 80048; 80053; 81001; 82140; 82947; 83036; 83540; 83550; 83605; 85025; 85379; 85610; 87040; 87086; 93005; J0610; J1815; J1956; J3370; J7040; J7030

== ENCOUNTER → 2018-06-16 | Outpatient (CLI) | payer MEDICARE ==
[2018-04-07 08:03] VITALS: BP 89/52
[~2018-06-16] MED LIST changes: +ERGO500027 PO; +WARF3TAB50 PO
[2018-06-16 10:15] LABS: ALBUMIN 3.5 g/dL (3.4-5.0); ALBUMIN/GLOBULIN RATIO 0.7 (1.0-1.7); CALCIUM 9.1 mg/dL (8.5-10.1); CREATININE 3.6 mg/dL (0.7-1.3); POTASSIUM 5.7 mmol/L (3.5-5.1); TOTAL BILIRUBIN 0.4 mg/dL (0.2-1.0); TOTAL PROTEIN 8.2 g/dL (6.4-8.2)
== END | disposition home or self-care (01) ==
LOC: LAB 09:37
PROVIDERS: ATTEND Nurse Practitioner Family
DX: E87.5 Hyperkalemia (principal)
CPT/HCPCS: 36415; 80053

== ENCOUNTER 2018-06-27 12:22 | Inpatient (IN) | payer MEDICARE ==
[~2018-06-27] VITALS: Ht 195.6 cm; Wt 137.6 kg
[2018-06-27] VITALS (27 sets, daily range): BP systolic 78–154; BP diastolic 39–73
[2018-06-27] MEDS ORDERED: IV NORMAL SALINE 1,000ML 1,000 ML IV SCH (12:33)
[2018-06-27 13:04] LABS: BASO # 0.1 x10^3/uL (0.0-0.2); BASO % 1 % (0-3); EOS # 0.1 x10^3/uL (0.0-0.7); EOS % 1 % (0-3); HEMATOCRIT 30.3 % (39.0-53.0); HEMOGLOBIN 9.5 g/dL (13.0-17.5); LYMPH # 0.3 x10^3/uL (1.0-4.8); LYMPH % 2 % (24-48); MEAN CORPUSCULAR HEMOGLOBIN 28 pg (25-35); MEAN CORPUSCULAR HGB CONC 31 g/dL (31-37); MEAN CORPUSCULAR VOLUME 88 fL (79-100); MONO # 0.8 x10^3/uL (0.0-1.1); MONO % 5 % (0-9); NEUT # 14.6 x10^3uL (1.8-7.7); NEUT % 92 % (31-73); PLATELET COUNT 258 x10^3/uL (140-400); RED BLOOD COUNT 3.44 x10^6/uL (4.30-5.70); RED CELL DISTRIBUTION WIDTH 15.9 % (11.5-14.5); WHITE BLOOD COUNT 15.9 x10^3/uL (4.0-11.0)
--- NOTE | 2018-06-27 13:06 | RAD ---
PORTABLE CHEST 1V Clinical History: fever x 2 days Technique: AP view of the chest was obtained at 06/27/2018 11:58 AM. Comparison: April 06, 2018. Findings: The heart is mildly enlarged. The pulmonary vasculature is normal. The lungs and pleural margins are clear. Impression: Mild cardiomegaly. Stable appearance of the chest. Electronically signed by: Gregorio Martin III, MD (06/27/2018 1:02 PM) [facility]
[2018-06-27 13:11] LABS: AMORPHOUS SEDIMENT,UR PRESENT /HPF; BACTERIA,URINE 0 /HPF (0-FEW); BILIRUBIN,URINE NEG (NEG); CLARITY,URINE CLEAR; COLOR,URINE YELLOW; GLUCOSE,URINE 100 mg/dL (NEG); HYALINE CASTS, URINE FEW /HPF; NITRITE,URINE NEG (NEG); SQUAMOUS EPITHELIAL CELL,UR FEW /LPF; UROBILINOGEN,URINE 0.2 mg/dL (0.2 mg/dL); WBC,URINE RARE /HPF (0-4)
[2018-06-27] MEDS ORDERED: VANCOMYCIN 1 GM in IV NORMAL SALINE 250ML 250 ML IV ONE ×2 (13:15→16:30)
[2018-06-27 13:19] LABS: ALBUMIN/GLOBULIN RATIO 0.8 (1.0-1.7); CALCIUM 8.4 mg/dL (8.5-10.1); CREATININE 2.9 mg/dL (0.7-1.3); GFR 21.9; POTASSIUM 4.9 mmol/L (3.5-5.1); TOTAL BILIRUBIN 0.4 mg/dL (0.2-1.0); TOTAL PROTEIN 6.9 g/dL (6.4-8.2)
[2018-06-27 13:26] LABS: INFLUENZA A PATIENT NEGATIVE (NEGATIVE); INFLUENZA B PATIENT NEGATIVE (NEGATIVE)
[2018-06-27] MEDS ORDERED: IV NORMAL SALINE 50ML 50 ML ONE (13:30)
[2018-06-27] MEDS ORDERED: cefTRIAXone SODIUM 1 GM VIAL IV ONE (13:30)
[2018-06-27] MEDS ORDERED: VANCOMYCIN 1 GM VIAL. ONE (13:30)
[2018-06-27] MEDS ORDERED: VANCOMYCIN 2 GM in IV NORMAL SALINE 500ML 500 ML IV ONE (13:30)
[2018-06-27] MEDS ORDERED: IV NORMAL SALINE 500ML 500 ML ONE (13:30)
[2018-06-27] MEDS ORDERED: IV NORMAL SALINE 1,000ML 1,000 ML IV ONE ×3 (13:30→14:45)
[2018-06-27] MEDS: IV NORMAL SALINE 1,000ML 1,000 ML IV SCH ×7 (13:36→17:15)
--- NOTE | 2018-06-27 13:36 | PHYS DOC ---
Past History Past Medical History: A-Fib, Diabetes, High Cholesterol, Hypertension Adult General Chief Complaint Chief Complaint: FEVER HPI HPI Patient is a 68 year old male with history of diabetes mellitus, hypertension, dyslipidemia and lower extremity chronic cellulitis who brought in by EMS because of fever. Patient states he didn't feel good today and was shaking and checked his temperature was 104 and took Tylenol and ibuprofen around 10 AM. Patient complaining of chronic lower extremity edema and erythema and increasing pain in left side since this morning. Patient has chronic cough without new change and denies nasal congestion, headache, nausea and vomiting, shortness of breath, urinary symptom. Review of Systems Review of Systems Constitutional: Reports fever and chills Eyes: Denies change in visual acuity, redness, or eye pain [] HENT: Denies nasal congestion or sore throat [] Respiratory: Denies cough or shortness of breath [] Cardiovascular: No additional information not addressed in HPI [] GI: Denies abdominal pain, nausea, vomiting, bloody stools or diarrhea [] : Denies dysuria or hematuria [] Musculoskeletal: Reports chronic back pain, reports extremity pain Integument: Reports erythema Neurologic: Denies headache, focal weakness or sensory changes [] Endocrine: Denies polyuria or polydipsia [] All other systems were reviewed and found to be within normal limits, except as documented in this note. Current Medications Current Medications Current Medications Medications (Trade) Dose Ordered Sig/Karine Start Time Stop Time Status Last Admin Dose Admin Ceftriaxone Sodium 1 gm/ Sodium Chloride 50 ml @ 100 mls/hr 1X ONCE 06/27/18 13:30 06/27/18 13:59 Sodium Chloride 500 ml @ As Directed STK-MED ONCE 06/27/18 13:30 06/27/18 13:31 DC Vancomycin HCl (Vancomycin) 1 gm STK-MED ONCE 06/27/18 13:30 06/27/18 13:31 DC Vancomycin HCl 1 gm/Sodium Chloride 250 ml @ 250 mls/hr 1X ONCE 06/27/18 13:15 06/27/18 13:28 DC Vancomycin HCl 2 gm/Sodium Chloride 500 ml @ 250 mls/hr 1X ONCE 06/27/18 13:30 06/27/18 15:29 Allergies Allergies Allergies Coded Allergies Type Severity Reaction Last Updated Verified Milk Containing Products Allergy Intermediate 05/30/17 Yes chlordiazepoxide Allergy Intermediate 05/30/17 Yes Insulins Allergy Unknown 06/27/18 Yes propoxyphene Allergy Unknown 06/27/18 Yes Physical Exam Physical Exam Constitutional: Well developed, well nourished, mild distress, non-toxic appearance. [] HENT: Normocephalic, atraumatic, bilateral external ears normal, oropharynx dry , no oral exudates, nose normal. [] Eyes: PERRLA, EOMI, conjunctiva normal, no discharge. [] Neck: Normal range of motion, no tenderness, supple, no stridor. [] Cardiovascular: Tachycardia, no murmur [] Lungs & Thorax: Bilateral breath sounds clear to auscultation [] Abdomen: Bowel sounds normal, soft, no tenderness, no masses, no pulsatile masses. [] Skin: Warm, dry, no erythema, no rash. [] Back: No tenderness, no CVA tenderness. [] Extremities: Bilateral lower extremity 2+ edema and erythema and cellulitis Neurologic: Alert and oriented X 3, normal motor function, normal sensory function, no focal deficits noted. [] Psychologic: Affect normal, judgement normal, mood normal. [] Current Patient Data Lab Results Laboratory Tests Test 06/27/18 12:45 06/27/18 12:55 White Blood Count 15.9 x10^3/uL (4.0-11.0) H Red Blood Count 3.44 x10^6/uL (4.30-5.70) L Hemoglobin 9.5 g/dL (13.0-17.5) L Hematocrit 30.3 % (39.0-53.0) L Mean Corpuscular Volume 88 fL (79-100) Mean Corpuscular Hemoglobin 28 pg (25-35) Mean Corpuscular Hemoglobin Concent 31 g/dL (31-37) Red Cell Distribution Width 15.9 % (11.5-14.5) H Platelet Count 258 x10^3/uL (140-400) Neutrophils (%) (Auto) 92 % (31-73) H Lymphocytes (%) (Auto) 2 % (24-48) L Monocytes (%) (Auto) 5 % (0-9) Eosinophils (%) (Auto) 1 % (0-3) Basophils (%) (Auto) 1 % (0-3) Neutrophils # (Auto) 14.6 x10^3uL (1.8-7.7) H Lymphocytes # (Auto) 0.3 x10^3/uL (1.0-4.8) L Monocytes # (Auto) 0.8 x10^3/uL (0.0-1.1) Eosinophils # (Auto) 0.1 x10^3/uL (0.0-0.7) Basophils # (Auto) 0.1 x10^3/uL (0.0-0.2) Platelet Estimate Pending Prothrombin Time 34.7 SEC (9.4-11.4) H Prothrombin Time INR 3.7 (0.9-1.1) H Urine Collection Type Void Urine Color Yellow Urine Clarity Clear Urine pH 5.0 Urine Specific Moran 1.015 Urine Protein Neg (NEG-TRACE) Urine Glucose (UA) 100 mg/dL (NEG) Urine Ketones (Stick) Neg mg/dL (NEG) Urine Blood Large (NEG) Urine Nitrite Neg (NEG) Urine Bilirubin Neg (NEG) Urine Urobilinogen Dipstick 0.2 mg/dL (0.2 mg/dL) Urine Leukocyte Esterase Neg (NEG) Urine RBC 11-20 /HPF (0-2) Urine WBC Rare /HPF (0-4) Urine Squamous Epithelial Cells Few /LPF Urine Amorphous Sediment Present /HPF Urine Bacteria 0 /HPF (0-FEW) Urine Hyaline Casts Few /HPF Sodium Level 140 mmol/L (136-145) Potassium Level 4.9 mmol/L (3.5-5.1) Chloride Level 106 mmol/L (98-107) Carbon Dioxide Level 22 mmol/L (21-32) Anion Gap 12 (6-14) Blood Urea Nitrogen 68 mg/dL (8-26) H Creatinine 2.9 mg/dL (0.7-1.3) H Estimated GFR (Cockcroft-Gault) 21.9 BUN/Creatinine Ratio 23 (6-20) H Glucose Level 111 mg/dL (70-99) H Lactic Acid Level 2.3 mmol/L (0.4-2.0) H Calcium Level 8.4 mg/dL (8.5-10.1) L Total Bilirubin 0.4 mg/dL (0.2-1.0) Aspartate Amino Transferase (AST) 22 U/L (15-37) Alanine Aminotransferase (ALT) 19 U/L (16-63) Alkaline Phosphatase 49 U/L (46-116) Total Protein 6.9 g/dL (6.4-8.2) Albumin 3.0 g/dL (3.4-5.0) L Albumin/Globulin Ratio 0.8 (1.0-1.7) L Influenza Type A (Rapid) Negative (NEGATIVE) Influenza Type B (Rapid) Negative (NEGATIVE) EKG EKG EKG interpreted by me. EKG at 1341 showed sinus tachycardia at rate of 108 reports headache QR is, poor R-wave progress in anteroseptal leads, no acute ST and T-wave abnormalities. Radiology/Procedures Radiology/Procedures [address] [address] IMAGING REPORT Signed PATIENT: CALOS METZ ACCOUNT: [id number] : 1950 LOCATION: ER AGE: 68 SEX: M EXAM STATUS: REG ER ORD. PHYSICIAN: LOUIS CHEUNG MD REASON: fever PROCEDURE: PORTABLE CHEST 1V PORTABLE CHEST 1V Clinical History: fever x 2 days Technique: AP view of the chest was obtained at 06/27/2018 11:58 AM. Comparison: April 06, 2018. Findings: The heart is mildly enlarged. The pulmonary vasculature is normal. The lungs and pleural margins are clear. Impression: Mild cardiomegaly. Stable appearance of the chest. Electronically signed by: Franco Villareal III, MD (06/27/2018 1:02 PM) [facility] [place]CTATED AND SIGNED BY: FRANCO VILLAREAL III, MD DATE: 06/27/18 1300 CC: THOMAS MALDONADO MD; LOUIS CHEUNG MD ~ Course & Med Decision Making Course & Med Decision Making Pertinent Labs and Imaging studies reviewed. (See chart for details) Evaluation of patient in ER showed 68-year-old male patient brought in by EMS because of fever. Patient had blood pressure of 70/40 at arrival to ER that improved with IV fluids to 88/50 with IV fluid. EKG and feeling and vancomycin with diagnosis of sepsis. Dr. Maldonado accepted admission at 1333. While patient was in ER. He was in ER his blood pressure dropped to 70s again that did not respond to 30 Ml/KG normal saline at total of 4200. She was alert and oriented and afebrile. Dr. Maldonado informed at 1516 [facility] Maldonado recommended to start Levophed and plans to evaluate the patient regarding his respond and decision about transfer or keeping patient in this hospital. Dragon Disclaimer Dragon Disclaimer This electronic medical record was generated, in whole or in part, using a voice recognition dictation system. Departure Departure: Impression: Primary Impression: Sepsis Additional Impressions: Cellulitis of lower extremity Tachycardia Hypotension Fever Renal insufficiency Diabetes mellitus Disposition: 09 ADMITTED INPATIENT (at 1333) Admitting Physician: Thomas Maldonado (accepted admission at 1332) Condition: GUARDED Referrals: THOMAS MALDONADO MD (PCP) Critical Care Note Total Time (mins): 120 Problem Qualifiers LOUIS CHEUNG MD Jun 27, 2018 13:35
[2018-06-27 13:46] LABS: % BANDS 12 % (0-9); % EOS 2 % (0-5); % MONOS 3 % (0-10); % SEGS 82 % (35-66)
[2018-06-27 13:47] LABS: % LYMPHS 1 % (24-48); PLT ESTIMATE ADEQUATE (ADEQUATE)
[2018-06-27] MEDS ORDERED: NOREPINEPHRINE BITARTRATE 8 MG in IV NORMAL SALINE 250ML 250 ML IV PRN (15:15)
[2018-06-27] MEDS ORDERED: VANCOMYCIN PER PHARMACY MC PRN (16:15)
[2018-06-27] MEDS ORDERED: IV NORMAL SALINE 500ML 500 ML IV PRN (16:15)
[2018-06-27] MEDS ORDERED: NOREPINEPHRINE BITARTRATE 16 MG in IV NORMAL SALINE 250ML 250 ML IV PRN (16:15)
[2018-06-27] MEDS: VANCOMYCIN PER PHARMACY MC PRN (17:18)
[2018-06-27 17:22] LABS: BGAS PH 7.29 (7.35-7.46)
[2018-06-27 17:34] LABS: ALBUMIN 2.8 g/dL (3.4-5.0); DIRECT BILIRUBIN 0.2 mg/dL (0.0-0.2); TOTAL BILIRUBIN 0.5 mg/dL (0.2-1.0); TOTAL PROTEIN 6.8 g/dL (6.4-8.2)
--- NOTE | 2018-06-27 18:47 | RAD ---
CHEST AP ONLY Clinical Indication: PICC LINE PLACEMENT Comparison: AP chest, earlier same day. Findings: There is right PICC or subclavian central line. Distal catheter does not course inferiorly into the SVC but courses to the midline, tip is in the left brachiocephalic vein. Stable mild cardiomegaly. Interstitial markings are upper limits of normal. Lungs are clear. There is no pneumothorax. No pleural effusion is appreciated. Degenerative endplate spurring in the thoracic spine. IMPRESSION: Right central line tip is malpositioned in the left brachiocephalic vein. Electronically signed by: Cooper Golden MD (06/27/2018 6:43 PM) [facility]
--- NOTE | 2018-06-27 19:21 | PDOC ---
SUBJECTIVE: Called to ICU- #3 for placement of emergent central line- Hypotension, pressors. IV access. OBJECTIVE: Problems: Patient currently hypotensive ,tachycardic on Levophed. Patient admitted for cellulitis suspect Sirs/sepsis.. Patient is monitored , appears in CHF and unable to lay flat. Patient has history of COPD. Patient currently on Coumadin for previous blood clots legs and pulmonary embolisms. Dr. Romero requested a Central line placement. Discussed risk and benefits of central line with patient, he is agreeable to procedure. Exhibits UCAR capacity. Pt. is agreeable to procedure. Right IJ and subclavian prepped with kit prep. Sterile draping ,gown, gloves, mask, head coverage. Patient received lidocaine subcutaneous injection subclavian and right IJ. Patient placed in Trendelenburg position. Right subclavian cannulated by Seldinger technique. Patient was returned to sitting position right after cannulation because of severe dyspnea and unable to tolerate laying flat. Veinous return all 3 ports. Biopatch and sutured in place with sterile dressing. Chest post placement of central line shows subclavian placement of triple-lumen, no obvious pneumothorax. Does have cardiomegaly with increased cephalization and infiltrates consistent with CHF. Vital Signs: Vital Signs Date Time Temp Pulse Resp B/P (MAP) Pulse Ox O2 Delivery O2 Flow Rate FiO2 06/27/18 18:22 107 22 116/44 (68) 95 Room Air 06/27/18 16:12 97.8 Labs: Laboratory Tests Test 06/27/18 12:45 06/27/18 12:55 06/27/18 17:10 White Blood Count 15.9 x10^3/uL (4.0-11.0) Red Blood Count 3.44 x10^6/uL (4.30-5.70) Hemoglobin 9.5 g/dL (13.0-17.5) Hematocrit 30.3 % (39.0-53.0) Mean Corpuscular Volume 88 fL (79-100) Mean Corpuscular Hemoglobin 28 pg (25-35) Mean Corpuscular Hemoglobin Concent 31 g/dL (31-37) Red Cell Distribution Width 15.9 % (11.5-14.5) Platelet Count 258 x10^3/uL (140-400) Neutrophils (%) (Auto) 92 % (31-73) Lymphocytes (%) (Auto) 2 % (24-48) Monocytes (%) (Auto) 5 % (0-9) Eosinophils (%) (Auto) 1 % (0-3) Basophils (%) (Auto) 1 % (0-3) Neutrophils # (Auto) 14.6 x10^3uL (1.8-7.7) Lymphocytes # (Auto) 0.3 x10^3/uL (1.0-4.8) Monocytes # (Auto) 0.8 x10^3/uL (0.0-1.1) Eosinophils # (Auto) 0.1 x10^3/uL (0.0-0.7) Basophils # (Auto) 0.1 x10^3/uL (0.0-0.2) Segmented Neutrophils % 82 % (35-66) Band Neutrophils % 12 % (0-9) Lymphocytes % 1 % (24-48) Monocytes % 3 % (0-10) Eosinophils % 2 % (0-5) Myelocytes % % (0-0) Platelet Estimate Adequate (ADEQUATE) Prothrombin Time 34.7 SEC (9.4-11.4) Prothromb Time International Ratio 3.7 (0.9-1.1) Urine Collection Type Void Urine Color Yellow Urine Clarity Clear Urine pH 5.0 Urine Specific Bigelow 1.015 Urine Protein Neg (NEG-TRACE) Urine Glucose (UA) 100 mg/dL (NEG) Urine Ketones (Stick) Neg mg/dL (NEG) Urine Blood Large (NEG) Urine Nitrite Neg (NEG) Urine Bilirubin Neg (NEG) Urine Urobilinogen Dipstick 0.2 mg/dL (0.2 mg/dL) Urine Leukocyte Esterase Neg (NEG) Urine RBC 11-20 /HPF (0-2) Urine WBC Rare /HPF (0-4) Urine Squamous Epithelial Cells Few /LPF Urine Amorphous Sediment Present /HPF Urine Bacteria 0 /HPF (0-FEW) Urine Hyaline Casts Few /HPF Sodium Level 140 mmol/L (136-145) Potassium Level 4.9 mmol/L (3.5-5.1) Chloride Level 106 mmol/L (98-107) Carbon Dioxide Level 22 mmol/L (21-32) Anion Gap 12 (6-14) Blood Urea Nitrogen 68 mg/dL (8-26) Creatinine 2.9 mg/dL (0.7-1.3) Estimated GFR (Cockcroft-Gault) 21.9 BUN/Creatinine Ratio 23 (6-20) Glucose Level 111 mg/dL (70-99) Lactic Acid Level 2.3 mmol/L (0.4-2.0) Calcium Level 8.4 mg/dL (8.5-10.1) Total Bilirubin 0.4 mg/dL (0.2-1.0) 0.5 mg/dL (0.2-1.0) Aspartate Amino Transf (AST/SGOT) 22 U/L (15-37) 24 U/L (15-37) Alanine Aminotransferase (ALT/SGPT) 19 U/L (16-63) 19 U/L (16-63) Alkaline Phosphatase 49 U/L (46-116) 43 U/L (46-116) Total Protein 6.9 g/dL (6.4-8.2) 6.8 g/dL (6.4-8.2) Albumin 3.0 g/dL (3.4-5.0) 2.8 g/dL (3.4-5.0) Albumin/Globulin Ratio 0.8 (1.0-1.7) Influenza Type A (Rapid) Negative (NEGATIVE) Influenza Type B (Rapid) Negative (NEGATIVE) D-Dimer (Simran) 0.27 mg/L (0.00-0.50) Blood Gas pH 7.29 (7.35-7.46) Blood Gas PCO2 36 mmHg (35-46) Blood Gas PO2 66 mmHg (80-100) Blood Gas HCO3 17 mmol/L (21-28) Arterial Bld O2 Saturation (Calc) 91 % (92-99) FiO2 21 % Direct Bilirubin 0.2 mg/dL (0.0-0.2) LH-Ccm-S-Type Natriuretic Peptide 784 pg/mL (0-124) ASSESSMENT: 1. Central Line Placement 2. Hypotensive on Pressors 3. CHF 4. Hx COPD 5. Elevated INR 6. Metabolic Acidosis 7. Suspect SIR's/Sepsis 8. Leukocytosis with elev. Segs and Bands 9. Cellulitis PLAN: May use Central line-labs, fluids and pressors.- ELIZABETH RUIZ MD Jun 27, 2018 19:21
--- NOTE | 2018-06-27 19:52 | HP ---
ADMIT DATE: 06/27/2018 HISTORY OF PRESENT ILLNESS: The patient came in through the Emergency Room. The patient has a history of diabetes, vascular stasis dermatitis of the legs. The patient has bilateral leg cellulitis. He has been having shaking chills, temperature up to 104. He had been taking ibuprofen and Tylenol, alternating temperature came somewhat down, but the patient became increasingly more lethargic and was admitted to the hospital for further evaluation. He denies chest pain, shortness of breath or urinary symptoms. He denies abdominal pain. He does have extreme pain in his lower extremities, but prefers not to take any opioids. PAST MEDICAL HISTORY: Peripheral neuropathy, peripheral vascular disease, anticoagulant therapy, hypercholesterolemia, history of DVTs, COPD, PEs, renal diseases, musculoskeletal disorders, orthopedic Surgery, diabetes. He is slowing down on his smoking exposure for 40 past years. The patient's skin problems of chronic cellulitis and venous stasis dermatitis. The patient has been to the [facility]. FAMILY HISTORY: Positive for diabetes and heart failure in the mother with one daughter with depression and father who has colon cancer and aneurysm of the blood vessels of the brain. ALLERGIES: HE HAS ALLERGIES ALLEGEDLY TO INSULIN, MILK CONTAINING PRODUCTS, LIBRIUM, AND DARVOCET. MEDICATIONS: Otherwise his medications are extensive. He is on warfarin 3 mg a day, fenofibrate, Zocor 40, propranolol 40, lisinopril 40, aspirin 81, furosemide 40, Levemir 45 units at bedtime, glimepiride one tablet daily, vitamin D2, Centrum Silver and gentamicin ointment. CODE STATUS: He is a full code. SOCIAL HISTORY: Positive for smoking. Very rare alcohol use and is noted full code. Denies hard drug use. REVIEW OF SYSTEMS: He denies headaches, vision changes, blurred vision. He does have severe pain in the legs. No nausea, vomiting, abdominal pain. Denies any melena, hematochezia, or hematemesis and neurologically stable. PHYSICAL EXAMINATION: VITAL SIGNS: On initial exam, his blood pressure coming in through the Emergency Room was 74/46, respiratory rate 18, pulse roughly 120, temperature 99.7, and oxygen saturation 92%. GENERAL: The patient obviously was septic. He had severe pain in his lower extremities. HEENT: The patient otherwise by the time I saw him, his head was atraumatic, normocephalic. Eyes: PERRLA without jaundice. Mouth and throat were normal. NECK: Supple, no JVD or thyromegaly. LUNGS: Diminished throughout, but basically clear. CARDIOVASCULAR: Regular sinus rhythm. ABDOMEN: Soft, nontender, no rebound or guarding. Positive bowel sounds, no hepatosplenomegaly was noted. EXTREMITIES: Both legs show marked erythema from the foot up just below the knees bilaterally with severe scalding and peeling of the skin and indication of vascular insufficiency. Pulses were noted distally, slightly decreased to 1/4. NEUROLOGIC: Alert and oriented x 3. Decreased sensation of the lower extremities in terms of pinprick as the patient does have diabetes, but he did have good capillary refill and normal reflexes. LABORATORY DATA: Indicative of a white count of almost 16,000. He had 12% bands. His chemistry showed a lactic acid of 2.3, BUN and creatinine were elevated at 68 and 2.9. He has chronic kidney problems and sees a older adult social work specialist. His albumin was low at 284. His BMP was 784. Liver enzymes were normal. The patient's urine did show 11-20 red blood cells and serology was negative for influenza. IMPRESSION: Sepsis, bilateral lower leg cellulitis with venous stasis dermatitis, chronic kidney disease stage 3, type 2 diabetes, morbid obesity, history of tobacco abuse, mild cardiomegaly, hypotension. The patient will continue to be monitored carefully, make further evaluation on his venous stasis, see wound care as well as arterial and venous Dopplers and make further assessment. His protime has been within range at 3.7 on the high side, we have pharmacy about regulate that and make further evaluation. He will be on triple antibiotics for now because of the severity of his diabetes and the severity of the bilateral leg infections that have been recurrent and is need for Levophed to keep his blood pressure up and sepsis, he is in the ICU in critical condition. He is on vancomycin, levothyroxine, and metronidazole as well. THOMAS MALDONADO MD DR: GURU/jordan JOB#: [id number] / [id number]
--- NOTE | 2018-06-27 20:26 | RAD ---
Bilateral lower extremity venous duplex Doppler examination and left lower extremity arterial duplex Doppler examination with spectral analysis HISTORY: Bilateral lower extremity edema and redness and hardness and painful. History of right leg thrombus years ago. Bilateral Lower Extremity Venous Doppler Ultrasound Procedure: Color flow, duplex, spectral analysis and 2D images are obtained with and without compression in the area of the common femoral vein, superficial femoral vein - femoral vein junction, main femoral vein (superficial femoral vein) and popliteal vein. Veins of the proximal calf are also imaged. Findings: There is normal duplex flow, color flow and compressibility of all visualized vein segments. No evidence of deep venous thrombus is present. There is poor visualization due to large body habitus. The peroneal veins are not well visualized. There is soft tissue extremity edema bilaterally. Impression: No evidence of DVT. End impression Left lower extremity ultrasound arterial duplex Doppler examination Sonographic examination left lower extremity was performed and multiple static images were obtained. In addition color Doppler was applied as well as arterial waveform spectral analysis. FINDINGS: There is normal triphasic to biphasic flow above the knee. There is monophasic flow below the knee. There is no high velocities. IMPRESSION: No evidence of hemodynamically significant stenosis. Electronically signed by: Gregorio Martin III, MD (06/27/2018 8:22 PM) [id number]
--- NOTE | 2018-06-27 20:57 | EKG ---
[address] [address] Test Date: 2018-06-27 Test Time: 13:41:37 Pat Name: CALOS METZ Department: Room: ICU03 1 Gender: M Travel Rn Or: AMANDA : 1950 Requested By: LOUIS CHEUNG Order Number: [id number] Reading MD: Chaka Kuhn Measurements Intervals [place] Rate: 108 P: 42 OR: 194 QRS: 5 QRSD: 80 T: 29 QT: 302 QTc: 408 Interpretive Statements SINUS TACHYCARDIA LOW LIMB LEAD VOLTAGE QRS(T) CONTOUR ABNORMALITY CONSISTENT WITH INFERIOR INFARCT PROBABLY OLD ABNORMAL ECG Electronically Signed On 06-30-2018 17:19:46 BILINGUAL MANAGER by Chaka Kuhn
[2018-06-27] MEDS: metroNIDAZOLE 500 MG TABLET PO SCH (21:39)
[2018-06-27] MEDS: INSULIN GLARGINE 300 UNITS/3 ML INSULN.PEN. SQ SCH (21:39)
[2018-06-27] MEDS: GENTAMICIN 0.1% TOPICAL OINTMENT 15GM TUBE. TP SCH (21:40)
[2018-06-27] MEDS: DULoxetine HCL 30 MG CAPSULE.DR PO SCH ×2 (21:44→23:44)
[2018-06-27] MEDS: ACETAMINOPHEN 325 MG TABLET PO PRN (23:43)
[2018-06-28] VITALS (44 sets, daily range): BP systolic 91–146; BP diastolic 32–62
[2018-06-28] MEDS: IV NORMAL SALINE 1,000ML 1,000 ML IV SCH ×2 (01:04→08:27)
[2018-06-28] MEDS: metroNIDAZOLE 500 MG TABLET PO SCH ×3 (06:15→22:19)
[2018-06-28 06:18] LABS: BASO # 0.1 x10^3/uL (0.0-0.2); BASO % 0 % (0-3); EOS # 0.2 x10^3/uL (0.0-0.7); EOS % 1 % (0-3); HEMATOCRIT 28.7 % (39.0-53.0); LYMPH # 0.1 x10^3/uL (1.0-4.8); LYMPH % 1 % (24-48); MEAN CORPUSCULAR HEMOGLOBIN 28 pg (25-35); MEAN CORPUSCULAR HGB CONC 32 g/dL (31-37); MEAN CORPUSCULAR VOLUME 89 fL (79-100); MONO # 0.6 x10^3/uL (0.0-1.1); MONO % 3 % (0-9); NEUT # 16.7 x10^3uL (1.8-7.7); NEUT % 95 % (31-73); PLATELET COUNT 240 x10^3/uL (140-400); RED BLOOD COUNT 3.23 x10^6/uL (4.30-5.70); RED CELL DISTRIBUTION WIDTH 16.1 % (11.5-14.5); WHITE BLOOD COUNT 17.7 x10^3/uL (4.0-11.0)
[2018-06-28 06:26] LABS: CALCIUM 7.8 mg/dL (8.5-10.1); CREATININE 2.3 mg/dL (0.7-1.3); GFR 28.6; POTASSIUM 5.2 mmol/L (3.5-5.1)
[2018-06-28 07:34] LABS: % BANDS 16 % (0-9); % EOS 0 % (0-5); % LYMPHS 0 % (24-48); % MONOS 1 % (0-10); % SEGS 82 % (35-66); PLT ESTIMATE ADEQUATE (ADEQUATE)
[2018-06-28] MEDS: ASPIRIN 81 MG TAB.CHEW PO SCH (08:03)
[2018-06-28] MEDS: DULoxetine HCL 30 MG CAPSULE.DR PO SCH ×2 (08:03→20:34)
[2018-06-28] MEDS: GENTAMICIN 0.1% TOPICAL OINTMENT 15GM TUBE. TP SCH (08:03)
[2018-06-28] MEDS: ACETAMINOPHEN 325 MG TABLET PO PRN (08:47)
[2018-06-28] MEDS: LACTOBACILLUS RHAMNOSUS GG 1 CAPSULE. PO SCH ×2 (09:00→20:34)
[2018-06-28] MEDS ORDERED: NON FORMULARY ITEM (Warfarin Sodium 1 TAB) PO SCH (09:00)
--- NOTE | 2018-06-28 15:33 | CARD ---
MR#: [id number] Date of Study: 06/28/2018 Ordering Physician: THOMAS MALDONADO, Referring Physician: THOMAS MALDONADO, Tech: Lolita Richardson DOMINIK APPROVED REPORT EXAM: Two-dimensional and M-mode echocardiogram with Doppler and color Doppler. Other Information Quality : Fair INDICATION Cardiomegaly 2D DIMENSIONS RVDd2.8 (2.9-3.5cm)Left Atrium(2D)4.0 (1.6-4.0cm) IVSd1.2 (0.7-1.1cm)Aortic Root(2D)3.2 (2.0-3.7cm) LVDd4.9 (3.9-5.9cm)PWd1.2 (0.7-1.1cm) LVDs3.7 (2.5-4.0cm)FS (%) 24.4 % SV54.2 mlLVEF(%)55.0 (>50%) Aortic Valve AoV Peak Nayan.168.8cm/sAoV VTI32.6cm AO Peak GR.11.4mmHgAO Mean GR.7mmHg DUARTE (VTI)2.33cm2 Mitral Valve MV E Bqjrkaws671.8cm/sMV DECEL [id number] MV A Trhfjplp38.4cm/sE/A Ratio1.1 Tricuspid Valve TR P. Rxihdjld140vc/sRAP [id number] TR Peak Gr.32buBkKRLK16roYt LEFT VENTRICLE The left ventricle is normal size. There is mild concentric left ventricular hypertrophy. The left ve ntricular systolic function is normal and the ejection fraction is within normal range. The Ejection Fraction is 55-60%. There is normal LV segmental wall motion. Transmitral Doppler flow pattern is Gra de II-pseudonormal filling dynamics. RIGHT VENTRICLE The right ventricle is normal size. The right ventricular systolic function is normal. ATRIA The left atrium size is normal. The right atrium size is normal. The interatrial septum is intact wit h no evidence for an atrial septal defect or patent foramen ovale as noted on 2-D or Doppler imaging. AORTIC VALVE The aortic valve is not well visualized. Doppler and Color Flow revealed no significant aortic regurg itation. There is no significant aortic valvular stenosis. MITRAL VALVE The mitral valve is calcified but opens well. There is no evidence of mitral valve prolapse. There is no mitral valve stenosis. Doppler and Color Flow revealed trace mitral valve regurgitation. TRICUSPID VALVE The tricuspid valve is normal in structure and function. Doppler and Color Flow revealed trace to mil d tricuspid regurgitation. There is moderate pulmonary hypertension. The PA pressure was estimated at 42 mmHg. There is no tricuspid valve stenosis. PULMONIC VALVE The pulmonic valve is not well visualized. Doppler and Color Flow revealed no pulmonic valvular regur gitation. There is no pulmonic valvular stenosis. GREAT VESSELS The aortic root is normal in size. The ascending aorta is normal in size. The IVC is normal in size a nd collapses >50% with inspiration. PERICARDIAL EFFUSION There is no evidence of significant pericardial effusion. Critical Notification Critical Value: No <Conclusion> The left ventricle is normal size. The left ventricular systolic function is normal and the ejection fraction is within normal range. The Ejection Fraction is 55-60%. There is mild concentric left ventricular hypertrophy. There is no significant aortic valvular stenosis. Doppler and Color Flow revealed no significant aortic regurgitation. Doppler and Color Flow revealed trace to mild tricuspid regurgitation. There is moderate pulmonary hypertension. The PA pressure was estimated at 42 mmHg. Signed by : Jr De Los Santos MD Electronically Approved : 06/28/2018 15:32:27
[2018-06-28] MEDS: VANCOMYCIN 2 GM in IV NORMAL SALINE 500ML 500 ML IV SCH (16:56)
[2018-06-28] MEDS ORDERED: FUROSEMIDE 20 MG/2 ML VIAL IVP ONE (18:00)
[2018-06-28 18:43] LABS: CALCIUM 8.1 mg/dL (8.5-10.1); CREATININE 2.4 mg/dL (0.7-1.3); GFR 27.2; POTASSIUM 4.9 mmol/L (3.5-5.1)
[2018-06-28] MEDS ORDERED: ONDANSETRON PF 4 MG/2 ML VIAL. IV PRN (19:00)
[2018-06-28] MEDS ORDERED: MELATONIN 3 MG TABLET PO PRN (19:15)
[2018-06-28] MEDS ORDERED: ZOLPIDEM 5 MG TABLET. PO PRN (19:15)
[2018-06-28] MEDS: INSULIN GLARGINE 300 UNITS/3 ML INSULN.PEN. SQ SCH (20:34)
[2018-06-29] VITALS (12 sets, daily range): BP systolic 103–117; BP diastolic 46–60
--- NOTE | 2018-06-29 02:07 | PN ---
DATE: SUBJECTIVE: The patient in with sepsis and cellulitis to his legs. The patient is feeling somewhat better overall. He continues to make fairly good progress, although his white count has gone up. The patient overall is feeling better. OBJECTIVE: VITAL SIGNS: His temperature is down to 97.6, blood pressure 104/50, respiratory rate 23, and pulse rate 89. He is on double antibiotics. GENERAL: The patient otherwise is resting fairly comfortably and making fairly good progress. LUNGS: Diminished, but clear. CARDIOVASCULAR: Stable. ABDOMEN: Soft, nontender. EXTREMITIES: Slightly swollen. ASSESSMENT: We will continue to give low doses of Lasix to diurese him; otherwise, sepsis, cellulitis to the legs bilaterally and type 2 diabetes. PLAN: As above. Continue with IV antibiotic therapy. THOMAS MALDONADO MD DR: GURU/jordan JOB#: [id number] / [id number]
[2018-06-29] MEDS: metroNIDAZOLE 500 MG TABLET PO SCH ×3 (05:45→22:11)
[2018-06-29 06:17] LABS: BASO % 1 % (0-3); EOS # 0.4 x10^3/uL (0.0-0.7); EOS % 4 % (0-3); HEMATOCRIT 29.4 % (39.0-53.0); HEMOGLOBIN 9.4 g/dL (13.0-17.5); LYMPH # 0.3 x10^3/uL (1.0-4.8); LYMPH % 3 % (24-48); MEAN CORPUSCULAR HEMOGLOBIN 28 pg (25-35); MEAN CORPUSCULAR HGB CONC 32 g/dL (31-37); MEAN CORPUSCULAR VOLUME 89 fL (79-100); MONO # 0.5 x10^3/uL (0.0-1.1); MONO % 6 % (0-9); NEUT # 7.8 x10^3uL (1.8-7.7); NEUT % 87 % (31-73); PLATELET COUNT 215 x10^3/uL (140-400); RED BLOOD COUNT 3.31 x10^6/uL (4.30-5.70); RED CELL DISTRIBUTION WIDTH 16.3 % (11.5-14.5); WHITE BLOOD COUNT 9.1 x10^3/uL (4.0-11.0)
[2018-06-29 06:20] LABS: CALCIUM 8.4 mg/dL (8.5-10.1); CREATININE 2.1 mg/dL (0.7-1.3); GFR 31.8; MAGNESIUM 1.4 mg/dL (1.8-2.4); POTASSIUM 4.7 mmol/L (3.5-5.1)
[2018-06-29] MEDS: GENTAMICIN 0.1% TOPICAL OINTMENT 15GM TUBE. TP SCH (07:46)
[2018-06-29] MEDS: GLIMEPIRIDE 2 MG TABLET PO SCH (07:46)
[2018-06-29] MEDS: ASPIRIN 81 MG TAB.CHEW PO SCH (07:46)
[2018-06-29] MEDS: FUROSEMIDE 40 MG TABLET PO SCH (07:47)
[2018-06-29] MEDS: DULoxetine HCL 30 MG CAPSULE.DR PO SCH ×2 (07:47→20:05)
[2018-06-29] MEDS: ACETAMINOPHEN 325 MG TABLET PO PRN ×2 (07:47→20:04)
[2018-06-29] MEDS: LACTOBACILLUS RHAMNOSUS GG 1 CAPSULE. PO SCH ×2 (07:47→20:04)
[2018-06-29] MEDS ORDERED: MAGNESIUM SULFATE 2GM 50 ML IV ONE (08:00)
[2018-06-29] MEDS ORDERED: WARFARIN 4 MG TABLET. PO ONE (16:00)
[2018-06-29 16:27] LABS: VANC TR 11.8 mcg/mL (10.0-20.0)
[2018-06-29] MEDS: VANCOMYCIN 2 GM in IV NORMAL SALINE 500ML 500 ML IV SCH (16:43)
[2018-06-29] MEDS: VANCOMYCIN PER PHARMACY MC PRN (17:09)
--- NOTE | 2018-06-29 18:48 | PN ---
DATE: SUBJECTIVE: A 68-year-old male in with sepsis, cellulitis of both legs with venous stasis. The patient is doing somewhat better, looks a little bit stronger this morning. OBJECTIVE: VITAL SIGNS: Blood pressure 108/50, respiratory rate 18, pulse 83, afebrile. GENERAL: The patient is alert and oriented. LUNGS: Diminished, some mild decreased breath sounds, otherwise. CARDIOVASCULAR: Regular sinus rhythm. ABDOMEN: Protuberant, soft. EXTREMITIES: Marked hyperpigmentation to the lower extremities, but markedly improved. He is getting back on Lasix, cutting down on fluids, cut down on the swelling. The patient's cultures so far have reduced some rare gram-positive organisms. [facility] the patient and put him on some gentamicin on his legs and that seems to be helping him as well. He will receive PT, OT and continue to monitor, have his legs wrapped, keep them elevated, try to get some of that fluid out from the venous stasis or maybe even try SCDs, make further evaluation on him as indicated. THOMAS MALDONADO MD DR: GURU/jordan JOB#: [id number] / [id number]
[2018-06-29] MEDS: INSULIN GLARGINE 300 UNITS/3 ML INSULN.PEN. SQ SCH (20:09)
[2018-06-30 01:31] VITALS: BP 119/56
[2018-06-30 05:17] LABS: BASO % 1 % (0-3); EOS # 0.3 x10^3/uL (0.0-0.7); EOS % 5 % (0-3); HEMATOCRIT 27.3 % (39.0-53.0); HEMOGLOBIN 8.8 g/dL (13.0-17.5); LYMPH # 0.4 x10^3/uL (1.0-4.8); LYMPH % 6 % (24-48); MEAN CORPUSCULAR HEMOGLOBIN 28 pg (25-35); MEAN CORPUSCULAR HGB CONC 32 g/dL (31-37); MEAN CORPUSCULAR VOLUME 88 fL (79-100); MONO # 0.5 x10^3/uL (0.0-1.1); MONO % 8 % (0-9); NEUT # 5.4 x10^3uL (1.8-7.7); NEUT % 81 % (31-73); PLATELET COUNT 222 x10^3/uL (140-400); RED BLOOD COUNT 3.11 x10^6/uL (4.30-5.70); RED CELL DISTRIBUTION WIDTH 16.3 % (11.5-14.5); WHITE BLOOD COUNT 6.6 x10^3/uL (4.0-11.0)
[2018-06-30 05:30] VITALS: BP 119/57
[2018-06-30 05:31] LABS: ALBUMIN 2.4 g/dL (3.4-5.0); ALBUMIN/GLOBULIN RATIO 0.6 (1.0-1.7); CALCIUM 8.2 mg/dL (8.5-10.1); GFR 33.6; MAGNESIUM 1.6 mg/dL (1.8-2.4); POTASSIUM 4.7 mmol/L (3.5-5.1); TOTAL BILIRUBIN 0.4 mg/dL (0.2-1.0); TOTAL PROTEIN 6.5 g/dL (6.4-8.2)
[2018-06-30] MEDS: metroNIDAZOLE 500 MG TABLET PO SCH (05:47)
[2018-06-30] MEDS ORDERED: LEVO750T31 PO (08:41)
[2018-06-30] MEDS ORDERED: ZOLP5TAB PO (08:41)
[2018-06-30] MEDS ORDERED: VANC1VIA3 MC (08:41)
[2018-06-30] MEDS ORDERED: DULO30CA2 PO (08:41)
[2018-06-30] MEDS: FUROSEMIDE 40 MG TABLET PO SCH (09:00)
[2018-06-30] MEDS: GENTAMICIN 0.1% TOPICAL OINTMENT 15GM TUBE. TP SCH (09:00)
[2018-06-30] MEDS: GLIMEPIRIDE 2 MG TABLET PO SCH (09:00)
[2018-06-30] MEDS: LACTOBACILLUS RHAMNOSUS GG 1 CAPSULE. PO SCH (09:00)
[2018-06-30] MEDS: DULoxetine HCL 30 MG CAPSULE.DR PO SCH (09:00)
[2018-06-30] MEDS: ASPIRIN 81 MG TAB.CHEW PO SCH (09:01)
--- NOTE | 2018-06-30 10:50 | DS ---
DATE OF DISCHARGE: 06/30/2018 HOSPITAL COURSE: A 68-year-old male came in through the Emergency Room, has a history of severe stasis dermatitis, cellulitis to his legs, had a temperature of 104, had been taking multiple medications, running temperature, became increasingly ill and as a result of this he has 16,000 white count, 12% bands, and he was noted to be with sepsis. Also, an elevated creatinine of 2.9 and BUN of 68 consistent with his dehydration. He has also seen a exhauster engineer. He is also a diabetic. He was placed in the ICU. Critical care per protocol, given IV fluids, placed on triple antibiotic therapy, wound care to see him. The patient made excellent progress. White count came down from 16 down to 6, hemoglobin remained basically stable as low as 8.8 and 27, creatinine came down from 2.9 down to 2.0, blood sugars were monitored on the low side. We cut back on his insulins. Albumin low at 2.4. In any case, the patient made excellent progress. Cultures from the legs just showed some rare gram-positive cocci, otherwise basically unremarkable. Lower extremity Dopplers showed negative findings for any stenosis or DVTs. Chest x-ray showed the PICC line in place. Continue on IV antibiotic therapy for another 10 days or so. Also, wound care treatment to those legs. IMPRESSION: Sepsis, venous stasis, cellulitis to the lower extremities, type 2 diabetes, hypoglycemia, tubular stasis, chronic kidney disease stage 3, [id number] protein malnutrition, obesity. Continue with such, make further evaluation on him as indicated. He will be transferred to [place]. Continued IV antibiotic and oral antibiotic therapy and wound care to his legs as well as monitoring his blood sugars and renal function. THOMAS MALDONADO MD DR: GURU/jordan JOB#: [id number] / [id number]
== END 2018-06-30 11:40 | DRG 871 ==
LOC: ER 12:22 → INTOOBSV 14:40 → ICU 14:40 → OBSVTOIN 14:40
PROVIDERS: ADMIT Family Medicine; ATTEND Family Medicine
PROC: 05H433Z Insertion of Infusion Device into Left Innominate Vein, Percutaneous Approach (ICD-10-PCS; principal; 2018-06-27)
DX: A41.9 Sepsis, unspecified organism (principal); N17.0 Acute kidney failure with tubular necrosis; E44.0 Moderate protein-calorie malnutrition; L03.115 Cellulitis of right lower limb; L03.116 Cellulitis of left lower limb; I13.0 Hypertensive heart and chronic kidney disease with heart failure and stage 1 through stage 4 chronic kidney disease, or unspecified chronic kidney disease; E11.42 Type 2 diabetes mellitus with diabetic polyneuropathy; E11.51 Type 2 diabetes mellitus with diabetic peripheral angiopathy without gangrene; E66.01 Morbid (severe) obesity due to excess calories; E78.00 Pure hypercholesterolemia, unspecified; E11.22 Type 2 diabetes mellitus with diabetic chronic kidney disease; E78.5 Hyperlipidemia, unspecified; E86.0 Dehydration; I48.91 Unspecified atrial fibrillation; I50.9 Heart failure, unspecified; N18.3 Chronic kidney disease, stage 3 (moderate); I87.2 Venous insufficiency (chronic) (peripheral); I87.8 Other specified disorders of veins; J44.9 Chronic obstructive pulmonary disease, unspecified; Z80.0 Family history of malignant neoplasm of digestive organs; Z82.49 Family history of ischemic heart disease and other diseases of the circulatory system; Z86.711 Personal history of pulmonary embolism; Z86.718 Personal history of other venous thrombosis and embolism; Z87.891 Personal history of nicotine dependence; Z83.3 Family history of diabetes mellitus; Z68.36 Body mass index [BMI] 36.0-36.9, adult; Z91.011 Allergy to milk products; Z88.8 Allergy status to other drugs, medicaments and biological substances; Z91.018 Allergy to other foods
CPT/HCPCS: 36415; 71045; 80048; 80053; 80076; 80202; 81001; 82803; 82947; 83605; 83735; 83880; 85007; 85025; 85379; 85610; 86850; 86900; 86901; 87040; 87070; 87071; 87075; 87186; 87641; 87804; 93005; 93306; 93926; 93970; 96365; 99292; J0696; J1815; J1956; J3370; J3475; J7040; J7050; 97530; 99291-25; J7030

== ENCOUNTER 2020-03-07 19:59 | Emergency (ER) | payer MEDICARE ==
[~2020-03-07] VITALS: Ht 195.6 cm; Wt 137.0 kg
[~2020-03-07 19:59] MED LIST changes: +DULO30CA2 PO; -GLIM1TAB2 PO; +GLIM1TAB7 PO; +LEVO750T31 PO; +SIMV40TA18 PO; -SIMV40TA3 PO; +VANC1VIA3 MC; +ZOLP5TAB PO
--- NOTE | 2020-03-07 23:02 | PHYS DOC ---
Past History Past Medical History: A-Fib, Diabetes, DVT, High Cholesterol, Hypertension Past Medical History Pul. Embolism x 3 Past Surgical History: Other Smoking: Cigarettes, Quit Less Than 1 Year, Quit Greater Than 1 Year Alcohol Use: None Drug Use: None General Adult EDM: Chief Complaint: BLOODY STOOL HPI: HPI: ".. I think I been popping blood the last three days.. I just got to week today.. and I fell...".. " I am really sick..." Patient is a 70 year old male who presents with above hx and GI bleed. Patient reports 3 days of dark tarry stools. Increased weakness resulting in a fall today. Patient has significant past medical history of peripheral vascular disease, DVTs, pulmonary embolisms x3, COPD, coronary artery disease, gait disorder, diabetes, oral [id number] tobacco use, chronic cellulitis, sepsis, chronic lower limb infections, A. fib and nephropathy. Patient follows with Dr. Erwin. Patient follows with [facility] wound care for his chronic lower limb venous stasis and cellulitis. Patient states he has been compliant with his Coumadin. Denies previous episodes of GI bleeds. No recent travel outside the [place] area. No specific ill contacts. Has had recent episode of increased fever and chills. Patient also complaining of cough and increased shortness of breath. Review of Systems: Review of Systems: Constitutional: History of fever or chills Eyes: Denies change in visual acuity HENT: Denies nasal congestion or sore throat Respiratory: History of cough and shortness of breath Cardiovascular: chronic lower limb edema GI: History of abdominal pain, nausea, black tarry diarrhea : Denies dysuria Musculoskeletal: History of generalized muscle and joint pain ,history of increased weakness Integument: Chronic lower limb rash - cellulitis and veinous stasis Neurologic: Denies headache, focal weakness or sensory changes Endocrine: Denies polyuria or polydipsia Lymphatic: Denies swollen glands Psychiatric: Denies depression or anxiety Heart Score: HEART Score for Chest Pain: HEART Score for Chest Pain Response (Comments) Value History Moderately Suspicious 1 ECG Nonspecific Repolarizatio 1 Age > 65 2 Risk Factors 1 or 2 Risk Factors 1 Troponin < Normal Limit 0 Total 5 Risk Factors: Risk Factors: DM, Current or recent (<one month) smoker, HTN, HLP, family history of CAD, obesity. Risk Scores: Score 0 - 3: 2.5% MACE over next 6 weeks - Discharge Home Score 4 - 6: 20.3% MACE over next 6 weeks - Admit for Clinical Observation Score 7 - 10: 72.7% MACE over next 6 weeks - Early Invasive Strategies Family History: Family History: Noncontributory to presentation Current Medications: Current Meds: See nursing for home meds Allergies: Allergies: Allergies Coded Allergies Type Severity Reaction Last Updated Verified Insulins Allergy Intermediate 06/28/18 Yes Milk Containing Products Allergy Intermediate 05/30/17 Yes chlordiazepoxide Allergy Intermediate 05/30/17 Yes propoxyphene Allergy Intermediate 06/28/18 Yes Physical Exam: PE: Constitutional: In acute distress, morbid in appearance. [] HENT: Normocephalic, atraumatic, bilateral external ears normal, oropharynx moist, no oral exudates, nose normal. [] Eyes: PERRLA, EOMI, conjunctiva pale, no discharge. [] Neck: Normal range of motion, no tenderness, supple, no stridor. [] Cardiovascular: Tachycardia heart rate regular rhythm, no murmur , PMI to the le ft. Frequent PVCs per monitor Lungs & Thorax: Bilateral breath sounds equal at apex with scattered wheezes throughout on auscultation ,[bilateral] basilar crackles. Abdomen: Bowel sounds hyperactive, soft, generalized tenderness, no masses, no pulsatile masses. Obese. Black tarry stools. Skin: Warm, diaphoretic, no erythema, no rash. [] Back: No tenderness, no CVA tenderness. [] Extremities: Lower limbs wrapped in dressings and compression bandages, moves all extremities on request, bilateral limb edema. [] Neurologic: Alert and oriented X 3, generalized motor weakness, decreased plantar sensation ,no focal deficits noted per patient Psychologic: Affect anxious, judgement normal, mood normal. [] Current Patient Data: Vital Signs: Vital Signs Date Time Temp Pulse Resp B/P (MAP) Pulse Ox O2 Delivery O2 Flow Rate FiO2 03/07/20 20:05 97.7 80 22 111/64 (80) 94 Room Air EKG: EKG: My interpretation EKG shows a sinus rhythm at 84 bpm. . Does have PVCs. [] Radiology/Procedures: Radiology/Procedures: [][place] [id number] IMAGING REPORT Signed PATIENT: CALOS METZ ACCOUNT: [id number] : 1950 LOCATION: ER AGE: 70 SEX: M EXAM STATUS: DEP ER ORD. PHYSICIAN: ELIZABETH RUIZ MD REASON: POSSIBLE PNEUMO AFTER ATTEMPTED LINE PLACEMENT PROCEDURE: PORTABLE CHEST 1V PORTABLE CHEST 1V Clinical Indication: Reason: POSSIBLE PNEUMO AFTER ATTEMPTED LINE PLACEMENT Comparison: AP chest June 27, 2018. Findings: Stable mild cardiomegaly. Lungs are clear. There is no pneumothorax. No pleural effusion is appreciated. No acute bone abnormality. IMPRESSION: No acute cardiopulmonary process. Electronically signed by: Cooper Golden MD (03/08/2020 3:35 AM) [facility] DICTATED AND SIGNED BY: COOPER GOLDEN MD DATE: 03/08/20 0335 CC: THOMAS MALDONADO MD; ELIZABETH RUIZ MD ~ Course & Med Decision Making: Course & Med Decision Making Pertinent Labs and Imaging studies reviewed. (See chart for details) Patient had multiple attempts for IV sticks by nursing- Procedure note-central line placement-emergent procedure-need for IV access and emergent blood products/fluids and labs Discussed risk and benefit. Patient agreeable for emergent placement of central line. Use of central line kit with sterile precautions. IJ stick on the left- unable to cannulate. Post x-ray showed no pneumothorax. Left femoral area-then use of new central line kit with sterile draping gets and prep-was able to cannulate right femoral vein by Seldinger technique. Triple- lumen placed with return of blood all 3 ports. Biopatch and sterile dressing applied. Sutured in place. Discussed presentation testing and treatment plan with -emergent transfer to [facility] COVID ordered possible need for surgery, and increased symptoms fever, chills, dyspnea, cough. Critical care 90 minutes Impression: 1. GI bleed 2. Severe coagulopathy-DIC 3. Critical anemia-hemoglobin 6.3 4. Leukocytosis 15.8 5. Diabetes= glucose 365 6. Acute renal failure with BUN 149 and creatinine 2.9 7. SIRS 8. Chronic lower limb venous stasis and cellulitis Dragon Disclaimer: Ai Disclaimer: This electronic medical record was generated, in whole or in part, using a voice recognition dictation system. Departure Departure: Disposition: 01 HOME/RESIDENCE PRIOR TO ADM Condition: STABLE Referrals: THOMAS MALDONADO MD (PCP) Justification of Admission: Justification of Admission: Justification of Admission Dx: Yes Comments: GI Bleed/coagulopathic-DIC Ai Disclaimer This chart was dictated in whole or in part using Voice Recognition software in a busy, high-work load, and often noisy Emergency Department environment. It may contain unintended and wholly unrecognized errors or omissions. ELIZABETH RUIZ MD Mar 07, 2020 23:02
[2020-03-07 23:20] LABS: BASO # 0.2 x10^3/uL (0.0-0.2); BASO % 1 % (0-3); EOS # 0.2 x10^3/uL (0.0-0.7); EOS % 2 % (0-3); HEMATOCRIT 20.6 % (39.0-53.0); LYMPH # 1.1 x10^3/uL (1.0-4.8); LYMPH % 7 % (24-48); MEAN CORPUSCULAR HEMOGLOBIN 27 pg (25-35); MEAN CORPUSCULAR HGB CONC 31 g/dL (31-37); MEAN CORPUSCULAR VOLUME 87 fL (79-100); MONO # 0.8 x10^3/uL (0.0-1.1); MONO % 5 % (0-9); NEUT # 13.5 x10^3uL (1.8-7.7); NEUT % 85 % (31-73); PLATELET COUNT 417 x10^3/uL (140-400); RED BLOOD COUNT 2.37 x10^6/uL (4.30-5.70); RED CELL DISTRIBUTION WIDTH 18.3 % (11.5-14.5); WHITE BLOOD COUNT 15.8 x10^3/uL (4.0-11.0)
[2020-03-07 23:22] LABS: HEMOGLOBIN 6.3 g/dL (13.0-17.5)
[2020-03-07] MEDS ORDERED: ONDANSETRON PF 4 MG/2 ML VIAL. IVP ONE (23:30)
[2020-03-07] MEDS ORDERED: diphenhydrAMINE 50 MG/ML VIAL IV ONE (23:30)
[2020-03-07] MEDS ORDERED: IV RINGERS SOLUTION,LACTATED 1,000 ML IV SCH (23:30)
[2020-03-07] MEDS ORDERED: PANTOPRAZOLE IV 40 MG VIAL. IVP ONE (23:30)
[2020-03-07 23:41] LABS: CALCIUM 8.5 mg/dL (8.5-10.1); CREATININE 2.9 mg/dL (0.7-1.3); GFR 21.7; POTASSIUM 4.8 mmol/L (3.5-5.1)
[2020-03-07 23:47] LABS: ALBUMIN 2.3 g/dL (3.4-5.0); DIRECT BILIRUBIN 0.2 mg/dL (0.0-0.2); TOTAL BILIRUBIN 0.4 mg/dL (0.2-1.0)
[2020-03-08] MEDS ORDERED: PHYTONADIONE 10 MG/ML AMPUL. SQ ONE (01:30)
[2020-03-08] MEDS ORDERED: IV NORMAL SALINE 100ML 100 ML ONE (01:57)
[2020-03-08] MEDS ORDERED: VANCOMYCIN 1 GM in IV NORMAL SALINE 250ML 250 ML IV ONE (02:00)
[2020-03-08] MEDS ORDERED: INSULIN REGULAR VIAL 100 UNIT in IV NORMAL SALINE 100ML 100 ML IV ONE (02:00)
[2020-03-08] MEDS ORDERED: IV NORMAL SALINE 250ML 250 ML ONE (03:03)
[2020-03-08 03:22] VITALS: BP 95/43
[2020-03-08 03:22] LABS: BARBITURATES NEG (NEG); BENZODIAZEPINES NEG (NEG); CANNABINOIDS NEG (NEG); COCAINE NEG (NEG); METHADONE NEG (NEG); OPIATES NEG (NEG); PHENCYCLIDINE NEG (NEG)
[2020-03-08 03:25] LABS: AMPHETAMINE/METHAMPHETAMINE NEG (NEG)
--- NOTE | 2020-03-08 03:38 | RAD ---
PORTABLE CHEST 1V Clinical Indication: Reason: POSSIBLE PNEUMO AFTER ATTEMPTED LINE PLACEMENT Comparison: AP chest June 27, 2018. Findings: Stable mild cardiomegaly. Lungs are clear. There is no pneumothorax. No pleural effusion is appreciated. No acute bone abnormality. IMPRESSION: No acute cardiopulmonary process. Electronically signed by: Cooper Golden MD (03/08/2020 3:35 AM) [facility]
[2020-03-08 03:55] LABS: BACTERIA,URINE 0 /HPF (0-FEW); BILIRUBIN,URINE NEG (NEG); CLARITY,URINE CLEAR; COLOR,URINE YELLOW; GLUCOSE,URINE 100 mg/dL (NEG); NITRITE,URINE NEG (NEG); RBC,URINE OCC /HPF (0-2); SQUAMOUS EPITHELIAL CELL,UR FEW /LPF; UROBILINOGEN,URINE 0.2 mg/dL (0.2 mg/dL); WBC,URINE OCC /HPF (0-4)
[2020-03-08 03:56] LABS: HYALINE CASTS, URINE FEW /HPF
[2020-03-08 05:51] LABS: % BANDS 2 % (0-9); % EOS 2 % (0-5); % LYMPHS 6 % (24-48); % MONOS 6 % (0-10); % SEGS 84 % (35-66)
[2020-03-08 05:52] LABS: PLT ESTIMATE ADEQUATE (ADEQUATE)
--- NOTE | 2020-03-08 06:47 | EKG ---
[address] [address] Test Date: 2020-03-08 Test Time: 01:02:12 Pat Name: CALOS METZ Department: Room: Gender: M Skill Labor: ALETHA : 1950 Requested By: ELIZABETH RUIZ Order Number: [id number] Reading MD: Measurements Intervals [place] Rate: 84 P: -60 WV: 122 QRS: 15 QRSD: 84 T: 31 QT: 368 QTc: 438 Interpretive Statements SINUS RHYTHM VENTRICULAR PREMATURE COMPLEX(ES) ABNORMAL ECG RI6.02 No previous ECG available for comparison
== END 2020-03-08 03:34 | disposition short-term general hospital (02) ==
LOC: ER 19:59
DX: K92.2 Gastrointestinal hemorrhage, unspecified (principal); N17.9 Acute kidney failure, unspecified; R65.10 Systemic inflammatory response syndrome (SIRS) of non-infectious origin without acute organ dysfunction; D64.9 Anemia, unspecified; E11.9 Type 2 diabetes mellitus without complications; I87.8 Other specified disorders of veins; L03.116 Cellulitis of left lower limb; L03.115 Cellulitis of right lower limb; I48.91 Unspecified atrial fibrillation; E78.00 Pure hypercholesterolemia, unspecified; I10 Essential (primary) hypertension; J44.9 Chronic obstructive pulmonary disease, unspecified; I25.10 Atherosclerotic heart disease of native coronary artery without angina pectoris; Z87.891 Personal history of nicotine dependence; Z86.718 Personal history of other venous thrombosis and embolism; Z86.711 Personal history of pulmonary embolism; Z88.8 Allergy status to other drugs, medicaments and biological substances; Z91.011 Allergy to milk products
CPT/HCPCS: 36415; 36430; 36556; 71045; 80048; 80076; 80307; 81001; 82550; 82947; 83690; 84484; 85007; 85025; 85610; 85730; 86850; 86900; 86901; 86920; 86927; 93005; 96361; 96365; 96368; 96372; 96375; 99291; 99292; C9113; J1200; J1815; J2405; J3430; J3490; J7120; P9016; P9017

== ENCOUNTER 2020-05-27 18:11 | Inpatient (IN) | payer MEDICARE ==
[~2020-05-27] VITALS: Ht 195.6 cm; Wt 142.6 kg
--- NOTE | 2020-05-27 18:37 | PHYS DOC ---
Past History Past Medical History: A-Fib, Diabetes, DVT, High Cholesterol, Hypertension Past Surgical History: Other Smoking: Cigarettes, Quit Less Than 1 Year, Quit Greater Than 1 Year Alcohol Use: None Drug Use: None General Adult EDM: Chief Complaint: LOWER EXTREMITY SWELLING HPI: HPI: Patient is a 70-year-old male brought in by EMS for lower extremity edema. Dates he was going see his doctor today but was unable to walk due to the swelling. Does note for the past 2 to 3 days, denies any history of of chronic lower extremity edema. Patient was hospitalized for a GI bleed secondary to aspirin use 1 month ago and received 5 to 6 units of blood for GI bleed. He denies any cough or shortness of breath, denies any chest pain. Denies any history of heart failure or liver disease. States he is taking furosemide and has been compliant on it but has noticed decreased and darker urination. Chronic wounds on lower extremities. Denies any fevers, vomiting, diarrhea. Has had normal p.o. intake. Review of Systems: Review of Systems: Constitutional: Denies fever or chills Eyes: Denies change in visual acuity HENT: Denies nasal congestion or sore throat Respiratory: Denies cough or shortness of breath Cardiovascular: Denies chest pain or edema GI: Denies abdominal pain, nausea, vomiting, bloody stools or diarrhea : Denies dysuria Musculoskeletal: Denies back pain or joint pain Integument: Denies rash Neurologic: Denies headache, focal weakness or sensory changes Endocrine: Denies polyuria or polydipsia Lymphatic: Denies swollen glands Psychiatric: Denies depression or anxiety Allergies: Allergies: Allergies Coded Allergies Type Severity Reaction Last Updated Verified Milk Containing Products Allergy Intermediate 05/30/17 Yes chlordiazepoxide Allergy Intermediate 05/30/17 Yes propoxyphene Allergy Intermediate 06/28/18 Yes Physical Exam: PE: Constitutional: Well developed, well nourished, no acute distress, non-toxic appearance. [] HENT: Normocephalic, atraumatic, bilateral external ears normal, oropharynx moist, no oral exudates, nose normal. [] Eyes: PERRLA, EOMI, conjunctiva normal, no discharge. [] Neck: Normal range of motion, no tenderness, supple, no stridor. [] Cardiovascular:Heart rate regular rhythm, no murmur [] Lungs & Thorax: Bilateral breath sounds clear to auscultation [] Abdomen: Bowel sounds normal, soft, no tenderness, no masses, no pulsatile masses. [] Skin: Warm, dry, no erythema, wounds on bilateral lower extremities Back: No tenderness, no CVA tenderness. [] Extremities: No tenderness, no cyanosis, no clubbing, ROM intact, pitting edema bilateral lower extremities to calf. Neurologic: Alert and oriented X 3, normal motor function, normal sensory function, no focal deficits noted. [] Psychologic: Affect normal, judgement normal, mood normal. [] EKG: EKG: Normal sinus rhythm, heart rate 82 bpm, no ST elevation or depression, no ec topy. Normal ECG [] Radiology/Procedures: Radiology/Procedures: Exam: Bilateral lower extremity venous duplex study INDICATION: Leg swelling TECHNIQUE: Using a combination of real-time ultrasound imaging and color-flow and pulse Doppler imaging techniques along with graded compression and augmentation, duplex evaluation of the deep venous systems of bilateral lower extremity was performed. Multiple images were obtained. Findings: Exam is limited secondary to body habitus. There is occlusive thrombus within the right SFV, popliteal vein and posterior tibial veins Partially occlusive thrombus in the left common femoral vein, SFV, and posterior tibial veins. IMPRESSION: 1. Extensive occlusive thrombus throughout the right lower extremity. 2. Partially occlusive thrombus throughout the left lower extremity. [] Heart Score: Risk Factors: Risk Factors: DM, Current or recent (<one month) smoker, HTN, HLP, family history of CAD, obesity. Risk Scores: Score 0 - 3: 2.5% MACE over next 6 weeks - Discharge Home Score 4 - 6: 20.3% MACE over next 6 weeks - Admit for Clinical Observation Score 7 - 10: 72.7% MACE over next 6 weeks - Early Invasive Strategies Course & Med Decision Making: Course & Med Decision Making Pertinent Labs and Imaging studies reviewed. (See chart for details) Consulted his primary care physician Dr. Romero, would like to start heparin and admit here. We will guaiac done prior to initiation of heparin. [] Dragon Disclaimer: Dragon Disclaimer: This electronic medical record was generated, in whole or in part, using a voice recognition dictation system. Departure Departure: Impression: Primary Impression: DVT, bilateral lower limbs Disposition: ADMITTED INPT THIS HOSP Condition: GUARDED Referrals: THOMAS ROMERO MD (PCP) JERED GASTELUM MD May 27, 2020 18:37
[2020-05-27 19:37] LABS: BASO # 0.1 x10^3/uL (0.0-0.2); BASO % 1 % (0-3); EOS # 0.2 x10^3/uL (0.0-0.7); EOS % 1 % (0-3); HEMATOCRIT 30.1 % (39.0-53.0); HEMOGLOBIN 9.4 g/dL (13.0-17.5); LYMPH # 1.1 x10^3/uL (1.0-4.8); LYMPH % 10 % (24-48); MEAN CORPUSCULAR HEMOGLOBIN 26 pg (25-35); MEAN CORPUSCULAR HGB CONC 31 g/dL (31-37); MEAN CORPUSCULAR VOLUME 82 fL (79-100); MONO # 0.8 x10^3/uL (0.0-1.1); MONO % 7 % (0-9); NEUT # 9.6 x10^3uL (1.8-7.7); NEUT % 81 % (31-73); PLATELET COUNT 245 x10^3/uL (140-400); RED BLOOD COUNT 3.67 x10^6/uL (4.30-5.70); RED CELL DISTRIBUTION WIDTH 17.2 % (11.5-14.5); WHITE BLOOD COUNT 11.9 x10^3/uL (4.0-11.0)
[2020-05-27 19:52] LABS: CALCIUM 9.3 mg/dL (8.5-10.1); GFR 20.9; POTASSIUM 4.3 mmol/L (3.5-5.1)
[2020-05-27 20:05] LABS: ALBUMIN/GLOBULIN RATIO 0.6 (1.0-1.7); MAGNESIUM 2.1 mg/dL (1.8-2.4); TOTAL BILIRUBIN 0.5 mg/dL (0.2-1.0); TOTAL PROTEIN 7.7 g/dL (6.4-8.2)
--- NOTE | 2020-05-27 20:57 | RAD ---
Exam: Bilateral lower extremity venous duplex study INDICATION: Leg swelling TECHNIQUE: Using a combination of real-time ultrasound imaging and color-flow and pulse Doppler imaging techniques along with graded compression and augmentation, duplex evaluation of the deep venous systems of bilateral lower extremity was performed. Multiple images were obtained. Findings: Exam is limited secondary to body habitus. There is occlusive thrombus within the right SFV, popliteal vein and posterior tibial veins Partially occlusive thrombus in the left common femoral vein, SFV, and posterior tibial veins. IMPRESSION: 1. Extensive occlusive thrombus throughout the right lower extremity. 2. Partially occlusive thrombus throughout the left lower extremity. Electronically signed by: Erendira Gonzales MD (05/27/2020 8:55 PM) [facility]
[2020-05-27 21:14] LABS: BACTERIA,URINE 0 /HPF (0-FEW); BILIRUBIN,URINE NEG (NEG); CLARITY,URINE CLEAR; COLOR,URINE AMBER; GLUCOSE,URINE 250 mg/dL (NEG); NITRITE,URINE NEG (NEG); RBC,URINE 0 /HPF (0-2); UROBILINOGEN,URINE 0.2 mg/dL (0.2 mg/dL); WBC,URINE 0 /HPF (0-4)
[2020-05-27] MEDS ORDERED: ONDANSETRON PF 4 MG/2 ML VIAL. IVP PRN (21:30)
[2020-05-27] MEDS ORDERED: ACETAMINOPHEN 325 MG TABLET PO PRN (21:30)
[2020-05-27] MEDS ORDERED: HEPARIN for IV BOLUS 10,000 UNIT/10 ML VIAL. IV ONE (21:30)
[2020-05-27] MEDS ORDERED: HEPARIN for IV BOLUS 10,000 UNIT/10 ML VIAL. IV PRN ×3 (21:30)
[2020-05-27 22:43] LABS: FECAL OB PT POSITIVE (NEG)
[2020-05-27] MEDS: HEPARIN 25,000UTS/250ML PREMIX 250 ML IV PRN (23:15)
[2020-05-27] MEDS: IV NORMAL SALINE 1,000ML 1,000 ML IV SCH (23:18)
--- NOTE | 2020-05-27 23:30 | EKG ---
[address] [address] Test Date: 2020-05-27 Test Time: 18:46:06 Pat Name: CALOS METZ Department: Room: Gender: M [employer]: : 1950 Requested By: JERED GASTELUM Order Number: [id number] Reading MD: Measurements Intervals [place] Rate: 82 P: 39 FL: 202 QRS: 6 QRSD: 80 T: 21 QT: 362 QTc: 426 Interpretive Statements SINUS RHYTHM NO SPECIFIC ECG ABNORMALITIES RI6.02 No previous ECG available for comparison
[2020-05-27 23:45] VITALS: BP 120/71
[2020-05-28] VITALS (21 sets, daily range): BP systolic 113–146; BP diastolic 59–81
[2020-05-28] MEDS ORDERED: CHOL500050 PO (00:35)
[2020-05-28] MEDS ORDERED: INSU200I4 SQ (00:35)
[2020-05-28 05:57] LABS: BASO # 0.1 x10^3/uL (0.0-0.2); BASO % 1 % (0-3); EOS # 0.2 x10^3/uL (0.0-0.7); EOS % 2 % (0-3); HEMATOCRIT 29.1 % (39.0-53.0); HEMOGLOBIN 9.1 g/dL (13.0-17.5); LYMPH # 1.4 x10^3/uL (1.0-4.8); LYMPH % 14 % (24-48); MEAN CORPUSCULAR HEMOGLOBIN 26 pg (25-35); MEAN CORPUSCULAR HGB CONC 31 g/dL (31-37); MEAN CORPUSCULAR VOLUME 82 fL (79-100); MONO # 0.8 x10^3/uL (0.0-1.1); MONO % 8 % (0-9); NEUT # 7.6 x10^3uL (1.8-7.7); NEUT % 76 % (31-73); PLATELET COUNT 244 x10^3/uL (140-400); RED BLOOD COUNT 3.54 x10^6/uL (4.30-5.70); RED CELL DISTRIBUTION WIDTH 17.3 % (11.5-14.5); WHITE BLOOD COUNT 10.1 x10^3/uL (4.0-11.0)
[2020-05-28 06:09] LABS: ALBUMIN 2.9 g/dL (3.4-5.0); ALBUMIN/GLOBULIN RATIO 0.6 (1.0-1.7); CREATININE 2.9 mg/dL (0.7-1.3); GFR 21.7; POTASSIUM 4.2 mmol/L (3.5-5.1); TOTAL BILIRUBIN 0.5 mg/dL (0.2-1.0); TOTAL PROTEIN 7.4 g/dL (6.4-8.2)
[2020-05-28] MEDS ORDERED: MAG HYDROX/AL HYDROX/SIMETH 30 ML ORAL.SUSP PO PRN (10:15)
[2020-05-28] MEDS ORDERED: DEXTROSE 50% 25 GM / 50ML DISP.SYRIN. IV PRN (11:00)
[2020-05-28] MEDS ORDERED: PANTOPRAZOLE 40 MG TABLET. PO ONE (11:00)
[2020-05-28] MEDS: GLIMEPIRIDE 2 MG TABLET PO SCH (11:21)
[2020-05-28] MEDS: FUROSEMIDE 40 MG TABLET PO SCH ×2 (11:21→19:30)
[2020-05-28] MEDS: HEPARIN 25,000UTS/250ML PREMIX 250 ML IV PRN ×2 (11:21→22:56)
[2020-05-28] MEDS: CHOLECALCIFEROL (VITAMIN D3) 1,000 UNIT TABLET PO SCH (11:21)
[2020-05-28] MEDS: IV NORMAL SALINE 1,000ML 1,000 ML IV SCH (11:21)
--- NOTE | 2020-05-28 11:44 | RAD ---
CHEST AP ONLY History: Reason: soa / Spl. Instructions: / History: Comparison: March 08, 2020 Findings: No consolidation or pleural effusion. Normal heart size. No pneumothorax. Impression: 1. No acute cardiopulmonary process. Electronically signed by: Ryder Pedro DO (05/28/2020 11:41 AM) [id number]
[2020-05-28] MEDS: INSULIN LISPRO 300 UNITS/3 ML VIAL. SQ SCH ×2 (11:45→17:02)
--- NOTE | 2020-05-28 12:14 | RAD ---
Indication: Reason: soa dvt's / Spl. Instructions: / History: Technique: Static images are obtained of both lungs following IV administration of 99 M technetium MAA. Comparison: Chest x-ray from same day Findings: Patchy perfusion defects are seen. Can not assess whether this is matched or mismatched given the lack of ventilation images. Impression: 1. Patchy perfusion defects are seen within the lungs bilaterally. Overall intermediate probability for pulmonary embolus. Electronically signed by: Dc Mcknight MD (05/28/2020 12:11 PM) [id number]
[2020-05-28] MEDS ORDERED: PROPRANOLOL 10 MG TABLET. ONE (19:26)
[2020-05-28] MEDS: SIMVASTATIN 40 MG TABLET. PO SCH (19:30)
[2020-05-28] MEDS: FENOFIBRATE NANOCRYSTALLIZED 145 MG TABLET PO SCH (19:30)
[2020-05-28] MEDS: PROPRANOLOL 10 MG TABLET. PO SCH (19:30)
[2020-05-28] MEDS: INSULIN GLARGINE SYRINGE. SQ SCH (20:59)
--- NOTE | 2020-05-28 21:05 | HP ---
ADMIT DATE: 05/27/2020 HISTORY OF PRESENT ILLNESS: The patient is a 70-year-old gentleman with multiple medical problems, came in through the Emergency Room. He said for the last couple of weeks, his legs are becoming increasingly swollen and the patient was noted to have bilateral DVTs as a result of this. The patient denies any chest pain, shortness of breath. Denies any melena, hematochezia, or hematemesis. But because of his bilateral significant DVTs and later on a V/Q scan that showed high probability for PE, although the patient did not complain of any chest pain or shortness of breath. The patient was admitted for IV heparin and switched over to oral anticoagulants. The clots were all in the lower leg below the knee for what was said and just minor one in the upper thigh, but not extensive in the thigh itself. PAST MEDICAL HISTORY: Peripheral neuropathy, oral surgery, congestive heart failure, cardiac surgery, IVC filter in 02/2020, anticoagulant therapy, hypercholesterolemia, DVT, respiratory disorder, COPD, pulmonary emboli 2 liters of oxygen, gastrointestinal bleed, renal disease, musculoskeletal disorder, musculoskeletal problems, orthopedic surgery, endocrine disorders, diabetes, history of smoking, although he quit in 2013 down to [id number] history of smoking. Has history of cellulitis. Vaccinations for tetanus and influenza are up-to-date. Skin problems, chronic venous stasis and he goes to the wound clinic every other week. FAMILY HISTORY: Positive for diabetes, depression, heart failure, colon cancer in the father, COPD and aneurysm of the blood vessels of the brain. ALLERGIES: MILK CONTAINING PRODUCTS, LIBRIUM AND DARVOCET. HOME MEDICATIONS: Include fenofibrate, Zocor 40, propranolol 40 b.i.d., furosemide 40, Tarceva 200 units daily, glimepiride 1 mg daily, vitamin D3, and a multivitamin. SOCIAL HISTORY: The patient is noted to quit smoking in 2013. Denies alcohol or drug use and is a full code. REVIEW OF SYSTEMS: The patient outside of his severe leg pain and neuropathy, denies chest pain, shortness of breath, headaches, visual change, blurred vision, double vision. Denies abdominal pain. Denies any melena, hematochezia that he has noticed and urination is fine. Neurologically, the patient's baseline ____. PHYSICAL EXAMINATION: GENERAL: This is a pleasant white male and really in no apparent distress. VITAL SIGNS: Blood pressure 140/70, respiratory rate 20. He is afebrile with a pulse in the 80s. He is on 2 liters at 94% up to 98%. The patient is a bearded young man, looking stated age of 70. HEENT: Otherwise, head was atraumatic. Mouth and throat: Poor dentition. NECK: Supple, without JVD, carotid bruits, no thyromegaly. LUNGS: Diminished throughout, but basically clear. CARDIOVASCULAR: Regular sinus rhythm. ABDOMEN: Soft, nontender, no rebound or guarding. Positive bowel sounds, protuberant. EXTREMITIES: Lower legs are markedly swollen. Positive Homans sign. Pulses noted distally, however. NEUROLOGIC: The patient neurologically intact. The patient will be monitored carefully for further evaluation of any complications of this; however, it was noted that the clots were in the lower extremities below the knee. IMPRESSION: Pulmonary emboli, deep venous thrombosis. PLAN: Continue to place him on heparin here for a few days and then switch him over to oral anticoagulants. Also, type 2 diabetes and severe protein malnutrition. THOMAS MALDONADO MD DR: GURU/jordan JOB#: [id number] / [id number]
[2020-05-29] VITALS (13 sets, daily range): BP systolic 116–142; BP diastolic 57–75
[2020-05-29 06:31] LABS: BASO # 0.1 x10^3/uL (0.0-0.2); BASO % 1 % (0-3); EOS # 0.1 x10^3/uL (0.0-0.7); EOS % 2 % (0-3); HEMATOCRIT 28.1 % (39.0-53.0); HEMOGLOBIN 8.7 g/dL (13.0-17.5); LYMPH # 0.8 x10^3/uL (1.0-4.8); LYMPH % 10 % (24-48); MEAN CORPUSCULAR HEMOGLOBIN 26 pg (25-35); MEAN CORPUSCULAR HGB CONC 31 g/dL (31-37); MEAN CORPUSCULAR VOLUME 84 fL (79-100); MONO # 0.6 x10^3/uL (0.0-1.1); MONO % 8 % (0-9); NEUT # 6.5 x10^3uL (1.8-7.7); NEUT % 80 % (31-73); PLATELET COUNT 228 x10^3/uL (140-400); RED BLOOD COUNT 3.36 x10^6/uL (4.30-5.70); RED CELL DISTRIBUTION WIDTH 17.7 % (11.5-14.5); WHITE BLOOD COUNT 8.1 x10^3/uL (4.0-11.0)
[2020-05-29 06:50] LABS: CALCIUM 8.9 mg/dL (8.5-10.1); CREATININE 2.5 mg/dL (0.7-1.3); GFR 25.8
[2020-05-29] MEDS: SUCRALFATE 1 GM/10 ML ORAL.SUSP. PEG SCH ×4 (08:30→20:46)
[2020-05-29] MEDS: PANTOPRAZOLE 40 MG TABLET. PO SCH (08:33)
[2020-05-29] MEDS: INSULIN LISPRO 300 UNITS/3 ML VIAL. SQ SCH ×3 (08:33→17:07)
[2020-05-29] MEDS ORDERED: INSULIN DEGLUDEC 200 UNIT SQ SCH (09:00)
[2020-05-29] MEDS ORDERED: HYDROcodone/APAP 7.5/325MG 1 TAB TABLET PO ONE (09:30)
[2020-05-29] MEDS: FENOFIBRATE NANOCRYSTALLIZED 145 MG TABLET PO SCH (10:23)
[2020-05-29] MEDS: FUROSEMIDE 40 MG TABLET PO SCH ×2 (10:23→17:05)
[2020-05-29] MEDS: CHOLECALCIFEROL (VITAMIN D3) 1,000 UNIT TABLET PO SCH (10:24)
[2020-05-29] MEDS: GLIMEPIRIDE 2 MG TABLET PO SCH (10:24)
[2020-05-29] MEDS: PROPRANOLOL 10 MG TABLET. PO SCH ×2 (10:29→20:47)
[2020-05-29] MEDS: DICLOFENAC SODIUM 1% TOPICAL GEL 100GM TUBE. TP SCH ×3 (12:00→23:43)
[2020-05-29] MEDS: HEPARIN 25,000UTS/250ML PREMIX 250 ML IV PRN (12:59)
[2020-05-29] MEDS ORDERED: AMMONIUM LACTATE 12% TOPICAL LOTION 226GM BOTTLE. TP SCH (13:30)
[2020-05-29] MEDS: INSULIN GLARGINE SYRINGE. SQ SCH (20:47)
[2020-05-29] MEDS: SIMVASTATIN 40 MG TABLET. PO SCH (20:47)
[2020-05-29] MEDS: HYDROcodone/APAP 7.5/325MG 1 TAB TABLET PO PRN (20:50)
[2020-05-30] MEDS: HEPARIN 25,000UTS/250ML PREMIX 250 ML IV PRN (00:10)
[2020-05-30] MEDS: DICLOFENAC SODIUM 1% TOPICAL GEL 100GM TUBE. TP SCH ×2 (05:29→10:16)
[2020-05-30 06:03] LABS: BASO # 0.1 x10^3/uL (0.0-0.2); BASO % 1 % (0-3); EOS # 0.2 x10^3/uL (0.0-0.7); EOS % 2 % (0-3); HEMATOCRIT 29.6 % (39.0-53.0); HEMOGLOBIN 9.2 g/dL (13.0-17.5); LYMPH # 1.3 x10^3/uL (1.0-4.8); LYMPH % 17 % (24-48); MEAN CORPUSCULAR HEMOGLOBIN 26 pg (25-35); MEAN CORPUSCULAR HGB CONC 31 g/dL (31-37); MEAN CORPUSCULAR VOLUME 83 fL (79-100); MONO # 0.7 x10^3/uL (0.0-1.1); MONO % 9 % (0-9); NEUT # 5.5 x10^3uL (1.8-7.7); NEUT % 71 % (31-73); PLATELET COUNT 256 x10^3/uL (140-400); RED BLOOD COUNT 3.56 x10^6/uL (4.30-5.70); RED CELL DISTRIBUTION WIDTH 17.7 % (11.5-14.5); WHITE BLOOD COUNT 7.8 x10^3/uL (4.0-11.0)
[2020-05-30 06:06] VITALS: BP 122/67
[2020-05-30] MEDS: INSULIN LISPRO 300 UNITS/3 ML VIAL. SQ SCH ×2 (08:00→12:00)
[2020-05-30] MEDS: PANTOPRAZOLE 40 MG TABLET. PO SCH (08:18)
[2020-05-30] MEDS: SUCRALFATE 1 GM/10 ML ORAL.SUSP. PEG SCH ×2 (08:18→11:30)
[2020-05-30] MEDS ORDERED: APIXABAN 5 MG TABLET. PO SCH (09:00)
[2020-05-30] MEDS ORDERED: AMMONIUM LACTATE 12% TOPICAL LOTION 226GM BOTTLE. TP SCH (09:00)
[2020-05-30] MEDS ORDERED: DICL100G18 TP (10:00)
[2020-05-30] MEDS ORDERED: SUCR1ORA5 PEG (10:00)
[2020-05-30] MEDS ORDERED: AMMO225L5 TP (10:00)
[2020-05-30] MEDS ORDERED: PANT40TA6 PO (10:00)
[2020-05-30] MEDS ORDERED: MAG30ORA2 PO (10:00)
[2020-05-30] MEDS ORDERED: APIX5TAB3 PO (10:00)
[2020-05-30] MEDS ORDERED: HYDR-2765 PO (10:00)
[2020-05-30] MEDS: FUROSEMIDE 40 MG TABLET PO SCH ×2 (10:11→14:22)
[2020-05-30] MEDS: PROPRANOLOL 10 MG TABLET. PO SCH (10:14)
[2020-05-30] MEDS: GLIMEPIRIDE 2 MG TABLET PO SCH (10:15)
[2020-05-30] MEDS: HYDROcodone/APAP 7.5/325MG 1 TAB TABLET PO PRN (10:15)
[2020-05-30] MEDS: CHOLECALCIFEROL (VITAMIN D3) 1,000 UNIT TABLET PO SCH (10:16)
[2020-05-30 11:00] VITALS: BP 115/55
[2020-05-30 15:00] VITALS: BP 124/88
--- NOTE | 2020-05-30 16:50 | PN ---
DATE: SUBJECTIVE: This 70-year-old male, came in with severe DVTs as well as possible intermediate PEs. The patient has lot of comorbidities. He is not taking very good care of himself and he has been started on a heparin drip and then switched over to Eliquis. His blood sugars are running in the low 200s to 180s. The patient otherwise has been monitored carefully. Hemoglobin and hematocrit has remained stable at 8.7 and 28. He has got chronic kidney disease stage 3B, which has been ongoing and severe protein malnutrition. OBJECTIVE: VITAL SIGNS: Blood pressure 130/60, respiratory rate 20, pulse 78, afebrile. GENERAL: The patient is alert and oriented. LUNGS: Diminished, but clear. CARDIOVASCULAR: He says he feels good. No chest pain, shortness of breath, abdominal pain negative. NEUROLOGICAL: Intact. PLAN: The patient continued to be switched over to Eliquis and ultimately sent on to further care facility for continued rehabilitation care. IMPRESSION: Deep venous thrombosis, possible pulmonary embolism, iron deficiency anemia. THOMAS MALDONADO MD DR: GURU/jordan JOB#: [id number] / [id number]
== END 2020-05-30 15:45 | DRG 299 ==
LOC: ER 18:11 → ICU 22:34
PROVIDERS: ADMIT Family Medicine; ATTEND Family Medicine
DX: I82.403 Acute embolism and thrombosis of unspecified deep veins of lower extremity, bilateral (principal); I26.99 Other pulmonary embolism without acute cor pulmonale; E43 Unspecified severe protein-calorie malnutrition; N17.0 Acute kidney failure with tubular necrosis; I13.0 Hypertensive heart and chronic kidney disease with heart failure and stage 1 through stage 4 chronic kidney disease, or unspecified chronic kidney disease; E11.42 Type 2 diabetes mellitus with diabetic polyneuropathy; E78.00 Pure hypercholesterolemia, unspecified; E78.5 Hyperlipidemia, unspecified; I48.91 Unspecified atrial fibrillation; I50.9 Heart failure, unspecified; I87.8 Other specified disorders of veins; J44.9 Chronic obstructive pulmonary disease, unspecified; D50.8 Other iron deficiency anemias; N18.32 Chronic kidney disease, stage 3b; Z80.0 Family history of malignant neoplasm of digestive organs; Z81.8 Family history of other mental and behavioral disorders; Z82.49 Family history of ischemic heart disease and other diseases of the circulatory system; Z82.5 Family history of asthma and other chronic lower respiratory diseases; Z83.3 Family history of diabetes mellitus; Z86.711 Personal history of pulmonary embolism; Z87.891 Personal history of nicotine dependence; E11.22 Type 2 diabetes mellitus with diabetic chronic kidney disease
CPT/HCPCS: 36415; 71045; 78580; 80048; 80053; 81001; 82274; 82947; 83605; 83735; 83880; 84100; 84443; 84484; 85025; 85610; 85730; 93005; 93970; 96374; A9540; J1644; J1815; 97110; 99285-25; J7030

== ENCOUNTER 2020-06-23 20:54 | Emergency (ER) | payer MEDICARE ==
[~2020-06-23] VITALS: Ht 177.8 cm; Wt 161.9 kg
[~2020-06-23 20:54] MED LIST changes: +AMMO225L5 TP; +APIX5TAB3 PO; +CHOL500050 PO; +DICL100G18 TP; +HYDR-2765 PO; +INSU200I4 SQ; +MAG30ORA2 PO; +PANT40TA6 PO; +SUCR1ORA5 PEG
--- NOTE | 2020-06-23 21:14 | RAD ---
Exam: CT head INDICATION: Altered mental status TECHNIQUE: Sequential axial images through the head were obtained without the administration of IV co ntrast. Comparisons: None FINDINGS: No focal parenchymal lesion or hemorrhage is identified. There is no midline shift or sulcal effaceme nt. Mild patchy evidence in the periventricular white matter. No acute vascular territory infarction is i dentified. Mantilla-white distinction is preserved. The ventricular system is within normal limits without compression hydrocephalus. The basal cisterns are well maintained. The visualized portions of the paranasal sinuses and mastoid air cells are well-pneumatized. No acute fractures. IMPRESSION: Mild small vessel ischemic change, technically age indeterminate without recent prior imaging. No acu te hemorrhage. Exposure: One or more of the following in the visualized dose reduction techniques were utilized for this examination: 1. Automated exposure control 2. Adjustment of the MA and/or KV according to patient size Use of iterative of reconstructive technique FOR INTERNAL CODING PURPOSES Critical result: Findings discussed with Laci Rehman at 06/23/2020 9:07 PM. RESULT CODE: (C) Electronically signed by: Erendira Gonzales MD (06/23/2020 9:11 PM) [facility]
[2020-06-23] MEDS ORDERED: IV NORMAL SALINE 1,000ML 1,000 ML IV ONE (21:15)
[2020-06-23] MEDS ORDERED: IOHEXOL 350 MG/ML 100 ML VIAL. IV ONE (21:30)
--- NOTE | 2020-06-23 22:44 | EKG ---
[facility] ED [facility] [address] [place] [id number] Test Date: 2020-06-23 Test Time: 21:43:18 Pat Name: CALOS METZ Department: Room: Gender: M Legal Activity Adjudicator: : 1950 Requested By: RALPH SRINIVASAN Order Number: [id number] Reading MD: Measurements Intervals [place] Rate: 107 P: [place]: QRS: 43 QRSD: 72 T: 27 QT: 314 QTc: 424 Interpretive Statements IRREGULAR RHYTHM, NO P-WAVE FOUND NO SPECIFIC ECG ABNORMALITIES RI6.02 No previous ECG available for comparison
[2020-06-23 23:02] LABS: BASO # 0.1 x10^3/uL (0.0-0.2); BASO % 1 % (0-3); EOS # 0.1 x10^3/uL (0.0-0.7); EOS % 1 % (0-3); HEMATOCRIT 33.2 % (39.0-53.0); HEMOGLOBIN 9.9 g/dL (13.0-17.5); LYMPH # 0.6 x10^3/uL (1.0-4.8); LYMPH % 5 % (24-48); MEAN CORPUSCULAR HEMOGLOBIN 25 pg (25-35); MEAN CORPUSCULAR HGB CONC 30 g/dL (31-37); MEAN CORPUSCULAR VOLUME 85 fL (79-100); MONO % 10 % (0-9); NEUT # 8.6 x10^3uL (1.8-7.7); NEUT % 83 % (31-73); PLATELET COUNT 404 x10^3/uL (140-400); RED BLOOD COUNT 3.92 x10^6/uL (4.30-5.70); WHITE BLOOD COUNT 10.4 x10^3/uL (4.0-11.0)
[2020-06-23 23:13] LABS: MAGNESIUM 2.1 mg/dL (1.8-2.4)
[2020-06-24 00:11] LABS: CALCIUM 8.9 mg/dL (8.5-10.1); CREATININE 2.1 mg/dL (0.7-1.3); GFR 31.6; POTASSIUM 4.8 mmol/L (3.5-5.1)
[2020-06-24 00:16] LABS: ALBUMIN 2.8 g/dL (3.4-5.0); ALBUMIN/GLOBULIN RATIO 0.7 (1.0-1.7); TOTAL BILIRUBIN 0.3 mg/dL (0.2-1.0); TOTAL PROTEIN 7.1 g/dL (6.4-8.2)
[2020-06-24 00:24] LABS: BARBITURATES NEG (NEG); BENZODIAZEPINES NEG (NEG); BILIRUBIN,URINE NEG (NEG); CANNABINOIDS NEG (NEG); CLARITY,URINE CLEAR; COCAINE NEG (NEG); COLOR,URINE YELLOW; GLUCOSE,URINE NEG (NEG); METHADONE NEG (NEG); NITRITE,URINE NEG (NEG); OPIATES NEG (NEG); PHENCYCLIDINE NEG (NEG); UROBILINOGEN,URINE 0.2 mg/dL (0.2 mg/dL)
[2020-06-24 00:25] LABS: AMORPHOUS SEDIMENT,UR PRESENT /HPF; BACTERIA,URINE 0 /HPF (0-FEW); RBC,URINE 0 /HPF (0-2); WBC,URINE 0 /HPF (0-4)
[2020-06-24 00:27] LABS: AMPHETAMINE/METHAMPHETAMINE NEG (NEG)
[2020-06-24] MEDS ORDERED: LACTULOSE 20 GM/30 ML SOLUTION. NG ONE (00:30)
[2020-06-24] MEDS ORDERED: ROCURONIUM 50 MG/5 ML VIAL. IV ONE (03:30)
[2020-06-24] MEDS ORDERED: ETOMIDATE 40 MG/20 ML VIAL. INJ ONE (03:30)
[2020-06-24] MEDS ORDERED: PROPOFOL 100 ML IV PRN (03:30)
[2020-06-24] MEDS ORDERED: BUMETANIDE 1 MG/4 ML VIAL. IVP ONE (03:45)
--- NOTE | 2020-06-24 04:24 | PHYS DOC ---
Past History Past Medical History: A-Fib, CHF, COPD, Diabetes, DVT, High Cholesterol, Hypertension, Renal Disease Additional Past Medical Histor: Venous insufficenty, cognitive communication disorder Past Medical History Limited secondary to altered mental status Past Surgical History: No Surgical History Past Surgical History Limited secondary to altered mental status Smoking: Quit Greater Than 1 Year Alcohol Use: None Drug Use: None Social History Limited secondary to altered mental status General Adult EDM: Chief Complaint: ALTERED MENTAL STATUS HPI: HPI: 70-year-old male presents via EMS from [facility] with report of altered mental status with last known well around "dinnertime " (approximately 1730). Patient reportedly was talking at dinnertime but now is not able to respond. No known history of trauma. EMS denies known Covid exposure at [facility]. History of present illness limited secondary to altered mental status. Review of Systems: Review of Systems: Review of systems limited secondary to altered mental status Current Medications: Current Meds: Current Medications Medications (Trade) Dose Ordered Sig/Karine Start Time Stop Time Status Last Admin Dose Admin Etomidate (Amidate) 20 mg 1X ONCE 06/24/20 03:30 06/24/20 03:33 DC Iohexol (Omnipaque 350 Mg/ml) 100 ml 1X ONCE 06/23/20 21:30 06/23/20 21:39 DC Lactulose (Lactulose) 30 gm 1X ONCE 06/24/20 00:30 06/24/20 00:31 DC 06/24/20 00:32 30 GM Propofol 100 ml @ 0 mls/hr CONT PRN 06/24/20 03:30 Rocuronium Climax (Zemuron) 50 mg 1X ONCE 06/24/20 03:30 06/24/20 03:33 DC Sodium Chloride 1,000 ml @ 1,000 mls/hr 1X ONCE 06/23/20 21:15 06/23/20 22:14 DC 06/23/20 22:33 1,000 MLS/HR Allergies: Allergies: Allergies Coded Allergies Type Severity Reaction Last Updated Verified Milk Containing Products Allergy Intermediate 05/30/17 Yes chlordiazepoxide Allergy Intermediate 05/30/17 Yes propoxyphene Allergy Intermediate 06/28/18 Yes Physical Exam: PE: Constitutional: Obese, obtunded HENT: Normocephalic, atraumatic Eyes: PERRL at 4mm, conjunctiva normal, no discharge Neck: Normal range of motion, no tenderness, supple Lungs & Thorax: Mild to moderate respiratory distress, equal chest rise and fall, diminished at bases Abdomen: Soft, no tenderness, obese Skin: Warm, dry, venous stasis dermatitis to anterior shins noted Extremities: BLE venous stasis dermatitis, 3+ BLE edema Neurologic: GCS 9 (eyes 2, verbal 2, motor 5) Psychologic: Unable to assess Current Patient Data: Labs: Laboratory Tests Test 06/23/20 22:20 06/23/20 23:55 White Blood Count 10.4 x10^3/uL (4.0-11.0) Red Blood Count 3.92 x10^6/uL (4.30-5.70) L Hemoglobin 9.9 g/dL (13.0-17.5) L Hematocrit 33.2 % (39.0-53.0) L Mean Corpuscular Volume 85 fL (79-100) Mean Corpuscular Hemoglobin 25 pg (25-35) Mean Corpuscular Hemoglobin Concent 30 g/dL (31-37) L Red Cell Distribution Width 18.0 % (11.5-14.5) H Platelet Count 404 x10^3/uL (140-400) H Neutrophils (%) (Auto) 83 % (31-73) H Lymphocytes (%) (Auto) 5 % (24-48) L Monocytes (%) (Auto) 10 % (0-9) H Eosinophils (%) (Auto) 1 % (0-3) Basophils (%) (Auto) 1 % (0-3) Neutrophils # (Auto) 8.6 x10^3uL (1.8-7.7) H Lymphocytes # (Auto) 0.6 x10^3/uL (1.0-4.8) L Monocytes # (Auto) 1.0 x10^3/uL (0.0-1.1) Eosinophils # (Auto) 0.1 x10^3/uL (0.0-0.7) Basophils # (Auto) 0.1 x10^3/uL (0.0-0.2) Prothrombin Time 11.1 SEC (9.4-11.4) Prothrombin Time INR 1.1 (0.9-1.1) Activated Partial Thromboplast Time 32 SEC (23-33) D-Dimer (Simran) 1.82 mg/L (0.00-0.50) H Sodium Level 143 mmol/L (136-145) Potassium Level 4.8 mmol/L (3.5-5.1) Chloride Level 100 mmol/L (98-107) Carbon Dioxide Level 42 mmol/L (21-32) H Anion Gap 1 (6-14) L Blood Urea Nitrogen 32 mg/dL (8-26) H Creatinine 2.1 mg/dL (0.7-1.3) H Estimated GFR (Cockcroft-Gault) 31.6 BUN/Creatinine Ratio 15 (6-20) Glucose Level 84 mg/dL (70-99) Lactic Acid Level 0.3 mmol/L (0.4-2.0) L Calcium Level 8.9 mg/dL (8.5-10.1) Magnesium Level 2.1 mg/dL (1.8-2.4) Total Bilirubin 0.3 mg/dL (0.2-1.0) Aspartate Amino Transferase (AST) 19 U/L (15-37) Alanine Aminotransferase (ALT) 11 U/L (16-63) L Alkaline Phosphatase 71 U/L (46-116) Ammonia 66 mcmol/L (11-34) H Creatine Kinase < 15 U/L (39-308) L Creatine Kinase MB (Mass) 0.5 ng/mL (0.0-3.6) Creatine Kinase MB Relative Index 0.0 % (0-4) Troponin I Quantitative < 0.017 ng/mL (0-0.055) OH-Kio-D-Type Natriuretic Peptide 5556 pg/mL (0-124) H Total Protein 7.1 g/dL (6.4-8.2) Albumin 2.8 g/dL (3.4-5.0) L Albumin/Globulin Ratio 0.7 (1.0-1.7) L Lipase 114 U/L (73-393) Urine Collection Type Unknown Urine Color Yellow Urine Clarity Clear Urine pH 5.0 Urine Specific Franklin 1.020 Urine Protein 100 mg/dl (NEG-TRACE) Urine Glucose (UA) Neg mg/dL (NEG) Urine Ketones (Stick) Neg mg/dL (NEG) Urine Blood Neg (NEG) Urine Nitrite Neg (NEG) Urine Bilirubin Neg (NEG) Urine Urobilinogen Dipstick 0.2 mg/dL (0.2 mg/dL) Urine Leukocyte Esterase Neg (NEG) Urine RBC 0 /HPF (0-2) Urine WBC 0 /HPF (0-4) Urine Squamous Epithelial Cells None /LPF Urine Amorphous Sediment Present /HPF Urine Bacteria 0 /HPF (0-FEW) Urine Opiates Screen Neg (NEG) Urine Methadone Screen Neg (NEG) Urine Barbiturates Neg (NEG) Urine Phencyclidine Screen Neg (NEG) Urine Amphetamine/Methamphetamine Neg (NEG) Urine Benzodiazepines Screen Neg (NEG) Urine Cocaine Screen Neg (NEG) Urine Cannabinoids Screen Neg (NEG) Urine Ethyl Alcohol Neg (NEG) Vital Signs: Vital Signs Date Time Temp Pulse Resp B/P (MAP) Pulse Ox O2 Delivery O2 Flow Rate FiO2 06/24/20 00:47 98.1 109 20 138/85 (102) 98 NonRebreather Mask 06/23/20 21:11 15.0 EKG: EKG: @2143 Afib at 107bpm. NO ST elevation, low voltage QRS, QT/QTc 314/424ms Radiology/Procedures: Radiology/Procedures: PROCEDURE: CT CODE STROKE HEAD WO Exam: CT head INDICATION: Altered mental status TECHNIQUE: Sequential axial images through the head were obtained without the administration of IV contrast. Comparisons: None FINDINGS: No focal parenchymal lesion or hemorrhage is identified. There is no midline shift or sulcal effacement. Mild patchy evidence in the periventricular white matter. No acute vascular territory infarction is identified. Mantilla-white distinction is preserved. The ventricular system is within normal limits without compression hydrocephalus. The basal cisterns are well maintained. The visualized portions of the paranasal sinuses and mastoid air cells are well- pneumatized. No acute fractures. IMPRESSION: Mild small vessel ischemic change, technically age indeterminate without recent prior imaging. No acute hemorrhage. Exposure: One or more of the following in the visualized dose reduction techniq ues were utilized for this examination: 1. Automated exposure control 2. Adjustment of the MA and/or KV according to patient size Use of iterative of reconstructive technique FOR INTERNAL CODING PURPOSES Critical result: Findings discussed with Laci Srinivasan at 06/23/2020 9:07 PM. RESULT CODE: (C) Electronically signed by: Erendira Gonzales MD (06/23/2020 9:11 PM) [facility] PROCEDURE: CHEST AP ONLY XR CHEST 1V 06/24/2020 3:50 AM INDICATION: Altered mental status, hypoxia COMPARISON: 05/28/2020 TECHNIQUE: Portable frontal view of the chest is provided. FINDINGS/ IMPRESSION: The cardiomediastinal silhouette is enlarged compared the prior examination. Consider cardiomyopathy versus pericardial effusion. Endotracheal tube is identified terminating approximately 4.8 cm above level of the nikolay. Lungs are clear. Nasogastric tube is identified with the side port above the level of the diaphragm. This may be advanced 10 cm. Moderate pulmonary vascular congestion as may be seen with congestive heart failure. Small right pleural effusion with adjacent basilar atelectasis versus infiltrate appears progressed. No pneumothorax. Electronically signed by: Andreea Lobato MD (06/24/2020 4:22 AM) [facility] Course & Med Decision Making: Course & Med Decision Making Pertinent Labs and Imaging studies reviewed. (See chart for details) Patient with significant comorbidities presents from intermediate with report of altered mental status. Per EMS from intermediate staff patient is normally verbal and was last seen well at "dinnertime". Given time at approximately 1730 and history of Eliquis, patient not candidate for TPA. Patient presented per EMS with concern for possible stroke. Patient responsive to painful stimuli only upon arrival. Patient also requiring supplemental O2 with hypoxia noted Patient sent directly for CT head. CT without acute process. EKG stable. Labs obtained and posted to chart. WBC and lactic acid WNL. Hyperammonemia noted. Symptoms possibly secondary to metabolic encephalopathy. NGT placed and lactulose given. D-dimer elevated. Patient with elevated Creatinine. Unable to obtain CTA chest. Hx of prior DVT for which patient is currently on Eliquis. Doubt PE. Patient subsequently with worsening respiratory effort. RSI performed with placement of ET tube. Patient placed on ventilator. ABGs with signs of hypercapnia. BNP significantly elevated. Bumex therefore provided. Patient requiring transfer for ICU admission for further evaluation and treatment. Discussed with Dr. Lam (hospitalist) who is in agreement with admission. Discussed findings and plan with patient's daughter, who acknowledges understanding and agreement. Ai Disclaimer: Ai Disclaimer: This electronic medical record was generated, in whole or in part, using a voice recognition dictation system. Departure Departure: Impression: Primary Impression: Respiratory failure Qualified Codes: J96.01 - Acute respiratory failure with hypoxia Additional Impressions: CHF exacerbation Qualified Codes: I50.9 - Heart failure, unspecified Elevated d-dimer Altered mental status Qualified Codes: R41.82 - Altered mental status, unspecified Suspected 2019 novel coronavirus infection Hypoxia Acute metabolic encephalopathy Disposition: 05 DC/TRF OTHER TYPE INSTITUTI ([facility]- Dr. Lam (hospitalist) accepting) Condition: CRITICAL Referrals: THOMAS MALDONADO MD (PCP) Intubation Intubation : Intubation Method: orotracheal Tube Size (cm): 8.0 Breath Sounds after Intubation: equal Intubation Complications: no complications Post Intubation Xray: Yes Progress Emergent consent obtained. Time out performed. Hand hygiene utilized. Glidescope utilized with successful placement of 8.0 cuffed ETT which was marked 24cm at teeth. CXR with good positioning of ETT. COVID-19 Assessment COVID-19 Patient Risks: Age 65 or older: Yes Sign of co-morbidity: Yes Exp to person + for COVID: No Exp to PUI: No Travel from affected area: No Lower respiratory symptoms: Yes Fever: No Other: No PPE Use: Full PPE with N95 mask or PAPR: Yes Critical Care Time Critical care time was 30 minutes which includes time at bedside, spent in discussion of patient's care with specialists and/or family members, with interpretation of laboratory and/or radiological studies and is exclusive of procedures. LACI SRINIVASAN DO Jun 24, 2020 04:23
[2020-06-24] MEDS ORDERED: ASPIRIN RECTAL 300 MG SUPP. PR ONE (05:00)
[2020-06-24 05:15] VITALS: BP 110/55
[2020-06-24 05:27] LABS: BGAS PCO2 130 mmHg (35-46); BGAS PH 7.11 (7.35-7.46); BGAS PO2 56 mmHg (80-100); FIO2 100 %
[2020-06-24] MEDS ORDERED: MIDAZOLAM HCL PF 5 MG/5 ML VIAL. IV ONE (06:00)
== END 2020-06-24 05:35 | disposition short-term general hospital (02) ==
LOC: ER 20:54
DX: J96.01 Acute respiratory failure with hypoxia (principal); R41.82 Altered mental status, unspecified; G93.41 Metabolic encephalopathy; I50.9 Heart failure, unspecified; R79.1 Abnormal coagulation profile; I11.0 Hypertensive heart disease with heart failure; I48.91 Unspecified atrial fibrillation; J44.9 Chronic obstructive pulmonary disease, unspecified; E11.9 Type 2 diabetes mellitus without complications; E78.00 Pure hypercholesterolemia, unspecified; Z20.828 Contact with and (suspected) exposure to other viral communicable diseases; Z79.01 Long term (current) use of anticoagulants; Z86.718 Personal history of other venous thrombosis and embolism; Z87.891 Personal history of nicotine dependence; Z91.011 Allergy to milk products; Z88.8 Allergy status to other drugs, medicaments and biological substances
CPT/HCPCS: 31500; 36415; 51702; 70450; 71045; 80053; 80307; 81001; 82140; 82553; 83605; 83690; 83735; 83880; 84484; 85025; 85379; 85610; 85730; 87040; 93005; 94660; 96361; 96374; 96375; 99291; J2704; J3490; J7030; 82803